=== PATIENT | female | born 1945 | race African-American/Black ===

== ENCOUNTER → 2017-04-01 | Outpatient (CLI) | payer MEDICARE, OTHER ==
[~2017-04-01] MED LIST: ACET-66 PO; ALBU8.5H IH; ALLO300 PO; Aspirin PO; BACIO TP; BUDE10.2 IH; CALC-1003 PO; CLOB60CR4 TP; CLOT15CR5 TP; CYAN50008 PO; FERR89TA PO; FURO40 PO; HC1C1.5 TP; HYDR-3965 PO; IPRAHFA IH; LORA10TA7 PO; LOSA50TA37 PO; MAGOX PO; MIRAUD PO; MORP10CA8 PO; MULT-1203 PO; OMEP20 PO; PREG50 PO; PREG75 PO; QUET25TA PO; SPIR25 PO; TRAVZOS OU; TRAZ-147 PO; VERA-6 PO; VITAD1000 PO; ZARO2.5 PO
== END | disposition home or self-care (01) ==
LOC: RADPV 12:49
PROVIDERS: ATTEND Orthopaedic Surgery
DX: M17.12 Unilateral primary osteoarthritis, left knee (principal)

== ENCOUNTER → 2017-05-29 | Outpatient (CLI) | payer MEDICARE, OTHER ==
[~2017-05-29] MED LIST changes: -ALBU8.5H IH; +ALBU8.5H8 IH; +ASPI-1182 PO; +BENZ-51 PO; +DEXT15SY3 PO; +HYDR-4069 PO; +MORP15 PO
== END | disposition home or self-care (01) ==
LOC: RADPV 10:11
PROVIDERS: ATTEND Orthopaedic Surgery
DX: I73.9 Peripheral vascular disease, unspecified (principal)
CPT/HCPCS: 93925

== ENCOUNTER 2017-06-13 12:43 | Emergency (ER) | payer MEDICARE, OTHER ==
[~2017-06-13] VITALS: Ht 172.7 cm; Wt 131.5 kg
[~2017-06-13 12:43] MED LIST changes: -ASPI-1182 PO; -BENZ-51 PO; -DEXT15SY3 PO; -HYDR-4069 PO; -MORP15 PO
[2017-06-13] MEDS ORDERED: DONNATAL/LIDOCAINE/MAALOX 55 ML BOTTLE PO ONE (15:00)
[2017-06-13 15:28] LABS: BASOPHILS % (AUTO) 0.3 % (0.0-2.0); EOSINOPHILS % (AUTO) 2.5 % (1.0-6.0); HEMATOCRIT 35.2 % (36-46); HEMOGLOBIN 11.7 g/dL (12.0-16.0); LYMPHOCYTES # (AUTO) 2.3 K/uL (1.0-4.8); LYMPHOCYTES % (AUTO) 38.6 % (22.0-44.0); MEAN CORPUSCULAR HEMOGLOBIN 30.4 pg (26.0-34.0); MEAN CORPUSCULAR HGB CONC 33.3 G/dL (31.0-37.0); MEAN CORPUSCULAR VOLUME 91 fL (80-100); MONOCYTES # (AUTO) 0.4 K/uL (0.1-1.0); MONOCYTES % (AUTO) 6.4 % (2.0-9.0); NEUTROPHILS # (AUTO) 3.1 K/uL (1.8-7.7); NEUTROPHILS % (AUTO) 52.2 % (40.0-70.0); PLATELET COUNT (AUTO) 277 K/uL (150-450); RED BLOOD CELL COUNT(AUTO) 3.86 MIL/uL (4.00-5.20); RED CELL DISTRIBUTION WIDTH 14.4 % (11.5-14.5)
[2017-06-13 15:32] LABS: CALCIUM, TOTAL 8.9 mg/dL (8.8-10.5); CREATININE 1.41 mg/dL (0.60-1.30); POTASSIUM 4.1 mmol/L (3.5-5.1)
[2017-06-13 15:34] LABS: INR 1.1 (0.9-1.1); PROTHROMBIN TIME 11.4 SEC (9.4-11.6)
[2017-06-13 15:39] LABS: ALBUMIN 3.1 g/dL (3.4-5.0); BILIRUBIN,TOTAL 0.3 mg/dL (0.1-1.0); TOTAL PROTEIN, SERUM 7.9 g/dL (6.4-8.2)
[2017-06-13] MEDS ORDERED: CloNIDine HCL 0.1 MG TABLET PO ONE (16:45)
[2017-06-13 16:47] VITALS: BP 160/65
== END 2017-06-13 17:23 | disposition home or self-care (01) ==
LOC: EMS 12:44
DX: R04.0 Epistaxis (principal); R10.13 Epigastric pain; J45.909 Unspecified asthma, uncomplicated; I11.0 Hypertensive heart disease with heart failure; I50.9 Heart failure, unspecified; J44.9 Chronic obstructive pulmonary disease, unspecified; Z95.1 Presence of aortocoronary bypass graft; Z88.6 Allergy status to analgesic agent; Z88.0 Allergy status to penicillin; Z88.8 Allergy status to other drugs, medicaments and biological substances; Z91.018 Allergy to other foods
CPT/HCPCS: 74022; 93005; 99285

== ENCOUNTER 2017-06-22 01:16 | Inpatient (IN) | payer MEDICARE, OTHER ==
[~2017-06-22] VITALS: Ht 160 cm; Wt 135.0 kg
[2017-06-22] MEDS ORDERED: NITROGLYCERIN 0.4 MG SUBLINGUAL TABLET #25 SL ONE (01:45)
[2017-06-22 01:57] LABS: BASOPHILS # (AUTO) 0.12 K/uL (0.00-0.20); BASOPHILS % (AUTO) 1.6 % (0.0-2.0); EOSINOPHILS # (AUTO) 0.25 K/uL (0.00-0.70); EOSINOPHILS % (AUTO) 3.35 % (1.0-6.0); HEMATOCRIT 34.9 % (36-46); HEMOGLOBIN 11.5 g/dL (12.0-16.0); LYMPHOCYTES # (AUTO) 3.3 K/uL (1.0-4.8); LYMPHOCYTES % (AUTO) 42.8 % (22.0-44.0); MEAN CORPUSCULAR HEMOGLOBIN 30.3 pg (26.0-34.0); MEAN CORPUSCULAR HGB CONC 32.9 G/dL (31.0-37.0); MEAN CORPUSCULAR VOLUME 92 fL (80-100); MONOCYTES # (AUTO) 0.6 K/uL (0.1-1.0); MONOCYTES % (AUTO) 7.4 % (2.0-9.0); NEUTROPHILS # (AUTO) 3.4 K/uL (1.8-7.7); NEUTROPHILS % (AUTO) 44.8 % (40.0-70.0); PLATELET COUNT (AUTO) 259 K/uL (150-450); RED BLOOD CELL COUNT(AUTO) 3.78 MIL/uL (4.00-5.20); WHITE BLOOD COUNT (AUTO) 7.6 K/uL (4.5-11.0)
[2017-06-22 02:05] LABS: INR 1.1 (0.9-1.1); PROTHROMBIN TIME 11.4 SEC (9.4-11.6)
[2017-06-22 02:17] LABS: ANION GAP 4 mmol/L (8-16); CALCIUM, TOTAL 8.6 mg/dL (8.8-10.5); CARBON DIOXIDE 32 mmol/L (22-29); CHLORIDE 98 mmol/L (98-107); CREATININE 1.44 mg/dL (0.60-1.30); GLOMERULAR FILTR. RATE CALC 44 mL/min (>60); POTASSIUM 3.6 mmol/L (3.5-5.1); SODIUM SERUM 134 mmol/L (136-145); UREA NITROGEN, BLOOD 15 mg/dL (7-18)
[2017-06-22 02:23] LABS: ALANINE AMINOTRANSFERASE 22 U/L (12-78); ALBUMIN 3.2 g/dL (3.4-5.0); ASPARTATE AMINOTRANSFERASE 17 U/L (15-37); B-TYPE NATRIURETIC PEPTIDE 100 pg/mL (0-100); BILIRUBIN,TOTAL 0.3 mg/dL (0.1-1.0); CREATINE KINASE, TOTAL 58 U/L (26-192); TOTAL PROTEIN, SERUM 7.3 g/dL (6.4-8.2)
[2017-06-22] MEDS ORDERED: NITROGLYCERIN 0.4 MG SUBLINGUAL TABLET #25 SL PRN (05:30)
[2017-06-22] MEDS ORDERED: NITROGLYCERIN 2% (1 GM=INCH) PACKET TP PRN (05:30)
[2017-06-22] MEDS ORDERED: ALBUTEROL SULFATE 2.5 MG/0.5 ML NEB SOLUTION NEB PRN (05:30)
[2017-06-22] MEDS ORDERED: ALBUTEROL SULFATE HFA 90 MCG/PUFF 8 GM INHALER IH SCH (06:00)
[2017-06-22 06:02] VITALS: BP 159/94
[2017-06-22 07:38] VITALS: BP 140/76
[2017-06-22] MEDS: IPRATROPIUM BROMIDE 0.5 MG/2.5 ML NEB SOLUTION NEB SCH ×3 (08:35→20:02)
[2017-06-22] MEDS: ALBUTEROL SULFATE 2.5 MG/0.5 ML NEB SOLUTION NEB SCH ×3 (08:35→20:02)
[2017-06-22] MEDS ORDERED: BUDESONIDE/FORMOTEROL FUMARATE 160-4.5 MCG/PUFF 6.9 GM INHALER IH SCH (09:00)
[2017-06-22] MEDS: ALLOPURINOL 300 MG TABLET PO SCH (09:00)
[2017-06-22] MEDS ORDERED: HYDROCODONE/ACETAMINOPHEN 5-325 MG TABLET PO SCH (09:00)
[2017-06-22] MEDS ORDERED: IPRATROPIUM BROMIDE HFA 17 MCG/PUFF 12.9 GM INHALER IH SCH (09:00)
[2017-06-22] MEDS: CHOLECALCIFEROL (VIT D3) 1,000 UNITS TABLET PO SCH (09:04)
[2017-06-22] MEDS: FUROSEMIDE 40 MG TABLET PO SCH ×2 (09:04→20:20)
[2017-06-22] MEDS: MAGNESIUM OXIDE 400 MG TABLET PO SCH ×2 (09:04→20:20)
[2017-06-22] MEDS: VERAPAMIL HCL 120 MG ER TABLET PO SCH (09:04)
[2017-06-22] MEDS: METOLAZONE 2.5 MG TABLET PO SCH (09:04)
[2017-06-22] MEDS: HYDROCODONE/ACETAMINOPHEN 5-325 MG TABLET PO PRN (09:39)
[2017-06-22] MEDS: ASPIRIN 81 MG EC TABLET PO SCH (09:39)
[2017-06-22 11:17] VITALS: BP 145/75
[2017-06-22] MEDS: QUEtiapine FUMARATE 25 MG TABLET PO SCH ×2 (11:57→22:02)
[2017-06-22] MEDS: LOSARTAN POTASSIUM 50 MG TABLET PO SCH (11:57)
[2017-06-22] MEDS: SPIRONOLACTONE 25 MG TABLET PO SCH (11:57)
[2017-06-22] MEDS: PRAVASTATIN SODIUM 20 MG TABLET PO SCH (11:57)
[2017-06-22 15:40] VITALS: BP 116/64
[2017-06-22 19:47] VITALS: BP 138/72
[2017-06-22] MEDS: MORPHINE SULFATE 2 MG/ML SYRINGE IVP PRN (20:20)
[2017-06-22] MEDS: POLYETHYLENE GLYCOL 3350 17 GM PACKET PO SCH (20:20)
[2017-06-22] MEDS: TraZODone HCL 100 MG TABLET PO SCH (22:01)
[2017-06-22] MEDS: TRAVOPROST-Z 0.004% 2.5 ML OPHTHALMIC SOLUTION OU SCH (22:02)
[2017-06-22 23:39] VITALS: BP 121/65
[2017-06-23] VITALS (8 sets, daily range): BP systolic 119–166; BP diastolic 54–91
[2017-06-23] MEDS: ALBUTEROL SULFATE 2.5 MG/0.5 ML NEB SOLUTION NEB SCH ×4 (02:30→20:02)
[2017-06-23] MEDS: IPRATROPIUM BROMIDE 0.5 MG/2.5 ML NEB SOLUTION NEB SCH ×4 (02:30→20:02)
[2017-06-23 06:08] LABS: BASOPHILS % (AUTO) 0.6 % (0.0-2.0); EOSINOPHILS % (AUTO) 3.8 % (1.0-6.0); HEMATOCRIT 33.7 % (36-46); HEMOGLOBIN 11.4 g/dL (12.0-16.0); LYMPHOCYTES # (AUTO) 1.9 K/uL (1.0-4.8); LYMPHOCYTES % (AUTO) 31.6 % (22.0-44.0); MEAN CORPUSCULAR HEMOGLOBIN 30.7 pg (26.0-34.0); MEAN CORPUSCULAR HGB CONC 33.7 G/dL (31.0-37.0); MEAN CORPUSCULAR VOLUME 91 fL (80-100); MONOCYTES # (AUTO) 0.6 K/uL (0.1-1.0); MONOCYTES % (AUTO) 9.6 % (2.0-9.0); NEUTROPHILS # (AUTO) 3.3 K/uL (1.8-7.7); NEUTROPHILS % (AUTO) 54.4 % (40.0-70.0); PLATELET COUNT (AUTO) 270 K/uL (150-450); RED CELL DISTRIBUTION WIDTH 13.8 % (11.5-14.5)
[2017-06-23 06:23] LABS: ALBUMIN 2.9 g/dL (3.4-5.0); BILIRUBIN,TOTAL 0.5 mg/dL (0.1-1.0); CALCIUM, TOTAL 8.8 mg/dL (8.8-10.5); CREATININE 1.37 mg/dL (0.60-1.30); MAGNESIUM 1.6 mg/dL (1.80-2.40); POTASSIUM 3.9 mmol/L (3.5-5.1)
[2017-06-23] MEDS: MAGNESIUM OXIDE 400 MG TABLET PO SCH ×2 (08:51→20:21)
[2017-06-23] MEDS: ALLOPURINOL 300 MG TABLET PO SCH (09:00)
[2017-06-23] MEDS: SPIRONOLACTONE 25 MG TABLET PO SCH (09:00)
[2017-06-23 10:30] LABS: APPEARANCE,URINE CLEAR (CLEAR); GLUCOSE, URINE (UA) NEGATIVE (NEGATIVE); KETONES,URINE NEGATIVE (NEGATIVE); LEUKOCYTE ESTERASE ,URINE NEGATIVE (NEGATIVE); OCCULT BLOOD,URINE NEGATIVE (NEGATIVE); PH,URINE 7.5 (5.0-8.0); PROTEIN,URINE NEGATIVE (NEGATIVE)
[2017-06-23 10:32] LABS: ADD UA MICROSCOPIC NO
[2017-06-23] MEDS ORDERED: REGADENOSON 0.4 MG/5 ML PF SYRINGE IVP ONE ×2 (12:11→17:14)
[2017-06-23] MEDS ORDERED: AMINOPHYLLINE 25 MG/ML 10 ML VIAL IVP ONE ×3 (12:16→17:14)
[2017-06-23] MEDS ORDERED: SESTAMIBI TC99M/UD ISOTOPE 1 EA INJ INJ ONE (12:20)
[2017-06-23] MEDS: FUROSEMIDE 40 MG TABLET PO SCH ×2 (13:30→20:21)
[2017-06-23] MEDS: LOSARTAN POTASSIUM 50 MG TABLET PO SCH (13:30)
[2017-06-23] MEDS: PRAVASTATIN SODIUM 20 MG TABLET PO SCH (13:30)
[2017-06-23] MEDS: QUEtiapine FUMARATE 25 MG TABLET PO SCH ×2 (13:30→20:21)
[2017-06-23] MEDS: ASPIRIN 81 MG EC TABLET PO SCH (13:31)
[2017-06-23] MEDS: CHOLECALCIFEROL (VIT D3) 1,000 UNITS TABLET PO SCH (13:31)
[2017-06-23] MEDS: VERAPAMIL HCL 120 MG ER TABLET PO SCH (13:31)
[2017-06-23] MEDS ORDERED: MORP15 PO (14:20)
[2017-06-23] MEDS ORDERED: ASPI-1182 PO (14:25)
[2017-06-23] MEDS ORDERED: HYDR-4069 PO (14:25)
[2017-06-23] MEDS ORDERED: TRAZ-147 PO (14:26)
[2017-06-23] MEDS ORDERED: QUET25TA PO (14:27)
[2017-06-23] MEDS ORDERED: VERA-6 PO (14:27)
[2017-06-23] MEDS: HYDROCODONE/ACETAMINOPHEN 5-325 MG TABLET PO PRN ×2 (15:54→23:53)
[2017-06-23] MEDS ORDERED: GuaiFENesin/D-METHORPHAN [SUGAR-FREE] 200-20MG/10 ML SYRUP UDCUP PO PRN (19:15)
[2017-06-23] MEDS: OMEPRAZOLE 20 MG CAPSULE PO SCH (20:21)
[2017-06-23] MEDS: MORPHINE SULFATE 2 MG/ML SYRINGE IVP PRN (20:37)
[2017-06-23] MEDS ORDERED: PREGABALIN 50 MG CAPSULE PO SCH (21:00)
[2017-06-23] MEDS: POLYETHYLENE GLYCOL 3350 17 GM PACKET PO SCH (21:00)
[2017-06-23] MEDS ORDERED: TraZODone HCL 100 MG TABLET PO SCH (21:00)
[2017-06-23] MEDS: TRAVOPROST-Z 0.004% 2.5 ML OPHTHALMIC SOLUTION OU SCH (21:56)
[2017-06-23] MEDS: TraZODone HCL 100 MG TABLET PO SCH (22:01)
[2017-06-23] MEDS: BENZONATATE 100 MG CAPSULE PO SCH (23:53)
[2017-06-24] MEDS: ALBUTEROL SULFATE 2.5 MG/0.5 ML NEB SOLUTION NEB SCH ×3 (02:00→14:00)
[2017-06-24] MEDS: IPRATROPIUM BROMIDE 0.5 MG/2.5 ML NEB SOLUTION NEB SCH ×3 (02:00→14:00)
[2017-06-24 04:19] VITALS: BP 113/62
[2017-06-24 07:21] LABS: BASOPHILS % (AUTO) 0.3 % (0.0-2.0); EOSINOPHILS % (AUTO) 3.2 % (1.0-6.0); HEMATOCRIT 33.9 % (36-46); HEMOGLOBIN 11.6 g/dL (12.0-16.0); LYMPHOCYTES # (AUTO) 2.4 K/uL (1.0-4.8); MEAN CORPUSCULAR HGB CONC 34.3 G/dL (31.0-37.0); MEAN CORPUSCULAR VOLUME 90 fL (80-100); MONOCYTES # (AUTO) 0.7 K/uL (0.1-1.0); NEUTROPHILS # (AUTO) 4.8 K/uL (1.8-7.7); NEUTROPHILS % (AUTO) 59.5 % (40.0-70.0); PLATELET COUNT (AUTO) 278 K/uL (150-450); RED BLOOD CELL COUNT(AUTO) 3.75 MIL/uL (4.00-5.20); WHITE BLOOD COUNT (AUTO) 8.1 K/uL (4.5-11.0)
[2017-06-24 07:39] LABS: ALBUMIN 2.9 g/dL (3.4-5.0); BILIRUBIN,TOTAL 0.5 mg/dL (0.1-1.0); CALCIUM, TOTAL 8.6 mg/dL (8.8-10.5); CREATININE 1.32 mg/dL (0.60-1.30); MAGNESIUM 1.4 mg/dL (1.80-2.40); POTASSIUM 3.2 mmol/L (3.5-5.1); TOTAL PROTEIN, SERUM 7.2 g/dL (6.4-8.2)
[2017-06-24 07:42] VITALS: BP 125/62
[2017-06-24] MEDS ORDERED: SESTAMIBI TC99M/UD ISOTOPE 1 EA INJ INJ ONE (08:00)
[2017-06-24] MEDS ORDERED: POTASSIUM CHLORIDE 20 MEQ ER TABLET PO ONE (08:15)
[2017-06-24] MEDS: VERAPAMIL HCL 120 MG ER TABLET PO SCH (08:44)
[2017-06-24] MEDS: FUROSEMIDE 40 MG TABLET PO SCH (08:44)
[2017-06-24] MEDS: BENZONATATE 100 MG CAPSULE PO SCH ×2 (08:44→17:11)
[2017-06-24] MEDS: SPIRONOLACTONE 25 MG TABLET PO SCH (08:44)
[2017-06-24] MEDS: CHOLECALCIFEROL (VIT D3) 1,000 UNITS TABLET PO SCH (08:45)
[2017-06-24] MEDS: PRAVASTATIN SODIUM 20 MG TABLET PO SCH (08:45)
[2017-06-24] MEDS: OMEPRAZOLE 20 MG CAPSULE PO SCH (08:45)
[2017-06-24] MEDS: HYDROCODONE/ACETAMINOPHEN 5-325 MG TABLET PO PRN (08:45)
[2017-06-24] MEDS: ALLOPURINOL 300 MG TABLET PO SCH (08:45)
[2017-06-24] MEDS: METOLAZONE 2.5 MG TABLET PO SCH (08:45)
[2017-06-24] MEDS: ASPIRIN 81 MG EC TABLET PO SCH (08:45)
[2017-06-24] MEDS: LOSARTAN POTASSIUM 50 MG TABLET PO SCH (08:45)
[2017-06-24] MEDS: MAGNESIUM OXIDE 400 MG TABLET PO SCH (08:45)
[2017-06-24] MEDS: QUEtiapine FUMARATE 25 MG TABLET PO SCH (09:14)
[2017-06-24 11:33] VITALS: BP 157/75
[2017-06-24 15:58] VITALS: BP 136/64
[2017-06-24] MEDS ORDERED: DEXT15SY3 PO (18:17)
[2017-06-24] MEDS ORDERED: BENZ-51 PO (18:18)
[2017-06-25] MEDS ORDERED: LORATADINE 10 MG TABLET PO SCH (09:00)
== END 2017-06-24 18:30 | disposition home or self-care (01) | DRG 311 ==
LOC: EMS 01:17 → 5S 04:33 → 5N 06-23 10:00
PROVIDERS: ADMIT Internal Medicine; ATTEND Internal Medicine
DX: I20.0 Unstable angina (principal); I11.0 Hypertensive heart disease with heart failure; D64.9 Anemia, unspecified; I50.9 Heart failure, unspecified; Z68.43 Body mass index [BMI] 50.0-59.9, adult; E66.9 Obesity, unspecified; E87.6 Hypokalemia; Z96.651 Presence of right artificial knee joint; F32.9 Major depressive disorder, single episode, unspecified; J44.9 Chronic obstructive pulmonary disease, unspecified; M10.9 Gout, unspecified; K21.9 Gastro-esophageal reflux disease without esophagitis; M19.90 Unspecified osteoarthritis, unspecified site; G89.4 Chronic pain syndrome; R94.31 Abnormal electrocardiogram [ECG] [EKG]; Z53.29 Procedure and treatment not carried out because of patient's decision for other reasons; Z98.84 Bariatric surgery status; Z88.0 Allergy status to penicillin; Z91.041 Radiographic dye allergy status; Z88.8 Allergy status to other drugs, medicaments and biological substances; Z91.048 Other nonmedicinal substance allergy status; Z90.710 Acquired absence of both cervix and uterus; Z90.49 Acquired absence of other specified parts of digestive tract; Z87.891 Personal history of nicotine dependence; Z79.82 Long term (current) use of aspirin
CPT/HCPCS: 78452; 83735; 93005; 93017; 93306; 94640; 99285; A9500; J0280; J2270; J2785; J3535

== ENCOUNTER 2017-12-09 14:48 | Emergency (ER) | payer MEDICARE, OTHER ==
[~2017-12-09] VITALS: Ht 172.7 cm; Wt 136.4 kg
[~2017-12-09 14:48] MED LIST changes: -ACET-66 PO; +ASPI-1182 PO; -Aspirin PO; -BACIO TP; +BENZ-51 PO; -CLOB60CR4 TP; -CLOT15CR5 TP; +DEXT15SY3 PO; -HC1C1.5 TP; -HYDR-3965 PO; +HYDR-4069 PO; -MORP10CA8 PO; +MORP15 PO; -PREG75 PO
[2017-12-09 15:01] VITALS: BP 164/82
[2017-12-09] MEDS ORDERED: ATOR40TA28 PO (15:25)
[2017-12-09] MEDS ORDERED: LOSA50TA37 PO (15:25)
[2017-12-09] MEDS ORDERED: METO25XL PO (15:25)
[2017-12-09] MEDS ORDERED: SODIUM CHLORIDE 0.9% 1,000 ML IV ONE (15:30)
[2017-12-09] MEDS ORDERED: ONDANSETRON HCL 4 MG/2 ML VIAL IVP ONE (15:30)
[2017-12-09 15:57] LABS: GLUCOSE,POINT OF CARE 88 MG/DL (70-110)
[2017-12-09 16:31] LABS: BASOPHILS % (AUTO) 0.8 % (0.0-2.0); EOSINOPHILS % (AUTO) 1.5 % (1.0-6.0); HEMATOCRIT 36.1 % (36-46); HEMOGLOBIN 12.1 g/dL (12.0-16.0); LYMPHOCYTES % (AUTO) 24.9 % (22.0-44.0); MEAN CORPUSCULAR HGB CONC 33.7 G/dL (31.0-37.0); MEAN CORPUSCULAR VOLUME 89 fL (80-100); MONOCYTES # (AUTO) 0.5 K/uL (0.1-1.0); MONOCYTES % (AUTO) 6.2 % (2.0-9.0); NEUTROPHILS # (AUTO) 5.2 K/uL (1.8-7.7); NEUTROPHILS % (AUTO) 66.6 % (40.0-70.0); PLATELET COUNT (AUTO) 298 K/uL (150-450); RED BLOOD CELL COUNT(AUTO) 4.04 MIL/uL (4.00-5.20); RED CELL DISTRIBUTION WIDTH 13.9 % (11.5-14.5)
[2017-12-09 16:40] LABS: CREATININE 1.63 mg/dL (0.60-1.30); POTASSIUM 3.8 mmol/L (3.5-5.1)
[2017-12-09 16:46] LABS: BILIRUBIN,TOTAL 0.3 mg/dL (0.1-1.0)
== END 2017-12-09 17:37 | disposition home or self-care (01) ==
LOC: EMS 14:49
DX: I13.0 Hypertensive heart and chronic kidney disease with heart failure and stage 1 through stage 4 chronic kidney disease, or unspecified chronic kidney disease (principal); I44.0 Atrioventricular block, first degree; I50.9 Heart failure, unspecified; R42 Dizziness and giddiness; J44.9 Chronic obstructive pulmonary disease, unspecified; N18.9 Chronic kidney disease, unspecified; Z79.82 Long term (current) use of aspirin; Z79.899 Other long term (current) drug therapy; Z88.0 Allergy status to penicillin; Z88.6 Allergy status to analgesic agent; Z90.49 Acquired absence of other specified parts of digestive tract; Z90.710 Acquired absence of both cervix and uterus; Z96.651 Presence of right artificial knee joint; Z98.84 Bariatric surgery status
CPT/HCPCS: 70450; 71045; 80053; 82948; 82962; 85025; 93005; 96361; 96374; 99285; J2405

== ENCOUNTER 2018-04-03 15:08 | Inpatient (IN) | payer MEDICARE, OTHER ==
[~2018-04-03] VITALS: Ht 170.2 cm; Wt 141.5 kg
[~2018-04-03 15:08] MED LIST changes: +ATOR40TA28 PO; +METO25XL PO; -TRAZ-147 PO; +TRAZ-220 PO
[2018-04-03] MEDS ORDERED: ONDANSETRON HCL 4 MG/2 ML VIAL IVP ONE ×2 (15:30→20:00)
[2018-04-03 16:08] LABS: EOSINOPHILS % (AUTO) 0.4 % (1.0-6.0); HEMATOCRIT 32.3 % (36-46); HEMOGLOBIN 10.7 g/dL (12.0-16.0); LYMPHOCYTES # (AUTO) 2.1 K/uL (1.0-4.8); LYMPHOCYTES % (AUTO) 24.8 % (22.0-44.0); MEAN CORPUSCULAR VOLUME 88 fL (80-100); MONOCYTES # (AUTO) 0.6 K/uL (0.1-1.0); MONOCYTES % (AUTO) 7.1 % (2.0-9.0); NEUTROPHILS # (AUTO) 5.5 K/uL (1.8-7.7); NEUTROPHILS % (AUTO) 66.7 % (40.0-70.0); PLATELET COUNT (AUTO) 316 K/uL (150-450); RED BLOOD CELL COUNT(AUTO) 3.68 MIL/uL (4.00-5.20); RED CELL DISTRIBUTION WIDTH 15.5 % (11.5-14.5)
[2018-04-03 16:17] LABS: CREATININE 1.73 mg/dL (0.60-1.30); POTASSIUM 3.4 mmol/L (3.5-5.1)
[2018-04-03 16:20] LABS: INR 1.1 (0.9-1.1); PROTHROMBIN TIME 11.9 SEC (9.4-11.6)
[2018-04-03 16:23] LABS: ALBUMIN 2.9 g/dL (3.4-5.0); BILIRUBIN,TOTAL 0.5 mg/dL (0.1-1.0); TOTAL PROTEIN, SERUM 7.9 g/dL (6.4-8.2)
[2018-04-03] MEDS ORDERED: MORPHINE SULFATE 4 MG/ML SYRINGE IVP ONE (16:30)
[2018-04-03 17:27] LABS: APPEARANCE,URINE CLOUDY (CLEAR); BILIRUBIN,URINE NEGATIVE (NEGATIVE); GLUCOSE, URINE (UA) NEGATIVE (NEGATIVE); KETONES,URINE NEGATIVE (NEGATIVE); LEUKOCYTE ESTERASE ,URINE TRACE (NEGATIVE); NITRATE,URINE NEGATIVE (NEGATIVE); OCCULT BLOOD,URINE NEGATIVE (NEGATIVE); PH,URINE 5.5 (5.0-8.0); PROTEIN,URINE NEGATIVE (NEGATIVE); UROBILINOGEN,URINE 0.2 mg/dL (<=1.0)
[2018-04-03 17:31] LABS: AMPHET/METH SCREEN,URINE NEGATIVE (NEGATIVE); BARBITURATE SCREEN, URINE NEGATIVE (NEGATIVE); BENZODIAZEPINES SCREEN,URINE NEGATIVE (NEGATIVE); CANNABINOID SCREEN,URINE NEGATIVE (NEGATIVE); COCAINE SCREEN,URINE NEGATIVE (NEGATIVE); METHADONE SCREEN, URINE NEGATIVE (NEGATIVE); OPIATE SCREEN,URINE POSITIVE (NEGATIVE); PHENCYCLIDINE SCREEN,URINE NEGATIVE (NEGATIVE)
[2018-04-03 17:38] LABS: BACTERIA,URINE Rare /HPF (None Seen); RBC,URINE None Seen /HPF (0-2); SQUAMOUS EPITHELIAL CELL,UR Moderate /LPF (None Seen)
[2018-04-03] MEDS ORDERED: ACETAMINOPHEN 325 MG TABLET PO PRN (20:00)
[2018-04-03] MEDS ORDERED: SODIUM CHLORIDE 0.9% 1,000 ML IV ONE ×2 (20:00→21:45)
[2018-04-03] MEDS ORDERED: 0.9% SODIUM CHLORIDE 10 ML SYRINGE IVP PRN (20:00)
[2018-04-03] MEDS ORDERED: ONDANSETRON HCL 4 MG/2 ML VIAL IVP PRN (20:00)
[2018-04-03 21:31] VITALS: BP 114/73
[2018-04-03] MEDS ORDERED: BISACODYL 10 MG RECTAL RECTAL SUPPOSITORY PR PRN (21:45)
[2018-04-03] MEDS ORDERED: MAGNESIUM HYDROXIDE SUSPENSION 30 ML UDCUP PO PRN (21:45)
[2018-04-03] MEDS: CIPROFLOXACIN 200 MG/D5% WATER 100 ML IV SCH (22:29)
[2018-04-03] MEDS: ZOLPIDEM TARTRATE 5 MG TABLET PO PRN (22:37)
[2018-04-03] MEDS: MORPHINE SULFATE 2 MG/ML SYRINGE IVP PRN (22:37)
[2018-04-03 23:20] VITALS: BP 114/59
[2018-04-03] MEDS: HEPARIN SODIUM,PORCINE 5,000 UNITS/ML VIAL SQ SCH (23:56)
[2018-04-03] MEDS: MetroNIDAZOLE 500 MG/NACL 100 ML IV SCH (23:56)
[2018-04-04] VITALS (7 sets, daily range): BP systolic 105–136; BP diastolic 50–69
[2018-04-04] MEDS: MORPHINE SULFATE 2 MG/ML SYRINGE IVP PRN (05:28)
[2018-04-04 06:14] LABS: BASOPHILS % (AUTO) 0.9 % (0.0-2.0); EOSINOPHILS % (AUTO) 1.5 % (1.0-6.0); HEMATOCRIT 32.8 % (36-46); HEMOGLOBIN 10.8 g/dL (12.0-16.0); LYMPHOCYTES # (AUTO) 1.9 K/uL (1.0-4.8); LYMPHOCYTES % (AUTO) 28.1 % (22.0-44.0); MEAN CORPUSCULAR HEMOGLOBIN 29.1 pg (26.0-34.0); MEAN CORPUSCULAR VOLUME 88 fL (80-100); MONOCYTES # (AUTO) 0.5 K/uL (0.1-1.0); MONOCYTES % (AUTO) 6.8 % (2.0-9.0); NEUTROPHILS # (AUTO) 4.2 K/uL (1.8-7.7); NEUTROPHILS % (AUTO) 62.7 % (40.0-70.0); PLATELET COUNT (AUTO) 311 K/uL (150-450); RED CELL DISTRIBUTION WIDTH 15.6 % (11.5-14.5)
[2018-04-04 06:34] LABS: ALBUMIN 2.6 g/dL (3.4-5.0); BILIRUBIN,TOTAL 0.4 mg/dL (0.1-1.0); CALCIUM, TOTAL 8.8 mg/dL (8.8-10.5); CREATININE 1.4 mg/dL (0.60-1.30); POTASSIUM 3.3 mmol/L (3.5-5.1); TOTAL PROTEIN, SERUM 7.4 g/dL (6.4-8.2)
[2018-04-04] MEDS: HEPARIN SODIUM,PORCINE 5,000 UNITS/ML VIAL SQ SCH ×3 (08:54→23:25)
[2018-04-04] MEDS: ACETAMINOPHEN 325 MG TABLET PO PRN (08:54)
[2018-04-04] MEDS: ASPIRIN 81 MG EC TABLET PO SCH (08:54)
[2018-04-04] MEDS: PANTOPRAZOLE SODIUM 40 MG DR TABLET PO SCH (08:54)
[2018-04-04] MEDS: MetroNIDAZOLE 500 MG/NACL 100 ML IV SCH ×3 (08:54→23:25)
[2018-04-04] MEDS: DOCUSATE SODIUM 100 MG CAPSULE PO SCH ×2 (08:54→20:22)
[2018-04-04] MEDS: CHOLECALCIFEROL (VIT D3) 1,000 UNITS TABLET PO SCH (08:54)
[2018-04-04] MEDS: ALLOPURINOL 300 MG TABLET PO SCH (08:55)
[2018-04-04] MEDS: MAG HYDROX/AL HYDROX/SIMETH 30 ML SUSP UDCUP PO SCH ×2 (08:55→20:22)
[2018-04-04] MEDS: METOPROLOL SUCCINATE 25 MG ER TABLET PO SCH (08:55)
[2018-04-04] MEDS: PREGABALIN 50 MG CAPSULE PO SCH ×2 (08:55→20:21)
[2018-04-04] MEDS: SPIRONOLACTONE 25 MG TABLET PO SCH (08:55)
[2018-04-04] MEDS: BUDESONIDE/FORMOTEROL FUMARATE 160-4.5 MCG/PUFF 6.9 GM INHALER IH SCH ×2 (08:57→20:21)
[2018-04-04] MEDS: CIPROFLOXACIN 200 MG/D5% WATER 100 ML IV SCH ×2 (10:56→20:23)
[2018-04-04] MEDS: ONDANSETRON HCL 4 MG/2 ML VIAL IVP PRN ×2 (11:43→20:22)
[2018-04-04] MEDS ORDERED: POTASSIUM CHLORIDE 20 MEQ ER TABLET PO ONE (14:15)
[2018-04-04] MEDS: HYDROCODONE/ACETAMINOPHEN 5-325 MG TABLET PO PRN ×2 (16:18→20:22)
[2018-04-04] MEDS: ATORVASTATIN CALCIUM 40 MG TABLET PO SCH (20:22)
[2018-04-05 04:15] VITALS: BP 125/60
[2018-04-05] MEDS: MORPHINE SULFATE 2 MG/ML SYRINGE IVP PRN ×2 (05:48→14:51)
[2018-04-05 07:45] VITALS: BP 114/57
[2018-04-05 08:16] LABS: BASOPHILS % (AUTO) 1.2 % (0.0-2.0); EOSINOPHILS % (AUTO) 3.3 % (1.0-6.0); HEMATOCRIT 30.6 % (36-46); HEMOGLOBIN 10.1 g/dL (12.0-16.0); LYMPHOCYTES # (AUTO) 2.1 K/uL (1.0-4.8); LYMPHOCYTES % (AUTO) 34.8 % (22.0-44.0); MEAN CORPUSCULAR HEMOGLOBIN 28.9 pg (26.0-34.0); MEAN CORPUSCULAR VOLUME 88 fL (80-100); MONOCYTES # (AUTO) 0.5 K/uL (0.1-1.0); MONOCYTES % (AUTO) 7.9 % (2.0-9.0); NEUTROPHILS # (AUTO) 3.2 K/uL (1.8-7.7); NEUTROPHILS % (AUTO) 52.8 % (40.0-70.0); PLATELET COUNT (AUTO) 289 K/uL (150-450); RED BLOOD CELL COUNT(AUTO) 3.49 MIL/uL (4.00-5.20); RED CELL DISTRIBUTION WIDTH 15.4 % (11.5-14.5)
[2018-04-05 08:26] LABS: CALCIUM, TOTAL 8.7 mg/dL (8.8-10.5); CREATININE 1.31 mg/dL (0.60-1.30); MAGNESIUM 1.9 mg/dL (1.80-2.40); POTASSIUM 3.6 mmol/L (3.5-5.1)
[2018-04-05] MEDS: MetroNIDAZOLE 500 MG/NACL 100 ML IV SCH ×3 (08:38→23:48)
[2018-04-05] MEDS: METOLAZONE 2.5 MG TABLET PO SCH (11:09)
[2018-04-05] MEDS: PANTOPRAZOLE SODIUM 40 MG DR TABLET PO SCH (11:09)
[2018-04-05] MEDS: MAG HYDROX/AL HYDROX/SIMETH 30 ML SUSP UDCUP PO SCH ×2 (11:09→22:03)
[2018-04-05] MEDS: ALLOPURINOL 300 MG TABLET PO SCH (11:09)
[2018-04-05] MEDS: PREGABALIN 50 MG CAPSULE PO SCH ×2 (11:10→19:52)
[2018-04-05] MEDS: DOCUSATE SODIUM 100 MG CAPSULE PO SCH ×3 (11:10→19:58)
[2018-04-05] MEDS: LORATADINE 10 MG TABLET PO SCH (11:10)
[2018-04-05] MEDS: SPIRONOLACTONE 25 MG TABLET PO SCH (11:11)
[2018-04-05] MEDS: BUDESONIDE/FORMOTEROL FUMARATE 160-4.5 MCG/PUFF 6.9 GM INHALER IH SCH ×2 (11:11→19:51)
[2018-04-05] MEDS: HEPARIN SODIUM,PORCINE 5,000 UNITS/ML VIAL SQ SCH ×3 (11:11→23:48)
[2018-04-05] MEDS: METOPROLOL SUCCINATE 25 MG ER TABLET PO SCH (11:11)
[2018-04-05] MEDS: CIPROFLOXACIN 200 MG/D5% WATER 100 ML IV SCH ×2 (11:12→22:03)
[2018-04-05] MEDS: ASPIRIN 81 MG EC TABLET PO SCH (11:13)
[2018-04-05] MEDS: CHOLECALCIFEROL (VIT D3) 1,000 UNITS TABLET PO SCH (11:14)
[2018-04-05] MEDS: BRIMONIDINE TARTRATE 0.15% 5 ML OPHTHALMIC SOLUTION OU SCH ×2 (14:51→19:52)
[2018-04-05 15:34] VITALS: BP 133/62
[2018-04-05] MEDS: HYDROCODONE/ACETAMINOPHEN 5-325 MG TABLET PO PRN ×2 (18:16→22:09)
[2018-04-05] MEDS: TIOTROPIUM BROMIDE 18 MCG/INH HANDIHALER [5] IH SCH (19:51)
[2018-04-05] MEDS: ATORVASTATIN CALCIUM 40 MG TABLET PO SCH (19:52)
[2018-04-05] MEDS: BIMATOPROST 0.01% 2.5 ML OPHTHALMIC SOLUTION OU SCH (19:52)
[2018-04-05 20:06] VITALS: BP 115/62
[2018-04-05] MEDS: ZOLPIDEM TARTRATE 5 MG TABLET PO PRN (22:03)
[2018-04-05 23:15] VITALS: BP 121/64
[2018-04-06 03:15] VITALS: BP 119/66
[2018-04-06 06:54] LABS: BASOPHILS % (AUTO) 0.5 % (0.0-2.0); EOSINOPHILS % (AUTO) 4.2 % (1.0-6.0); HEMATOCRIT 31.9 % (36-46); HEMOGLOBIN 10.3 g/dL (12.0-16.0); LYMPHOCYTES # (AUTO) 2.4 K/uL (1.0-4.8); LYMPHOCYTES % (AUTO) 37.3 % (22.0-44.0); MEAN CORPUSCULAR HEMOGLOBIN 29.1 pg (26.0-34.0); MEAN CORPUSCULAR HGB CONC 32.3 G/dL (31.0-37.0); MEAN CORPUSCULAR VOLUME 90 fL (80-100); MONOCYTES # (AUTO) 0.5 K/uL (0.1-1.0); MONOCYTES % (AUTO) 8.3 % (2.0-9.0); NEUTROPHILS # (AUTO) 3.2 K/uL (1.8-7.7); NEUTROPHILS % (AUTO) 49.7 % (40.0-70.0); PLATELET COUNT (AUTO) 289 K/uL (150-450); RED BLOOD CELL COUNT(AUTO) 3.54 MIL/uL (4.00-5.20); RED CELL DISTRIBUTION WIDTH 15.4 % (11.5-14.5)
[2018-04-06 07:08] LABS: CALCIUM, TOTAL 8.8 mg/dL (8.8-10.5); CREATININE 1.24 mg/dL (0.60-1.30); MAGNESIUM 1.7 mg/dL (1.80-2.40); POTASSIUM 3.5 mmol/L (3.5-5.1)
[2018-04-06 07:09] VITALS: BP 119/75
[2018-04-06] MEDS: MetroNIDAZOLE 500 MG/NACL 100 ML IV SCH (08:21)
[2018-04-06] MEDS: TIOTROPIUM BROMIDE 18 MCG/INH HANDIHALER [5] IH SCH (08:21)
[2018-04-06] MEDS: CHOLECALCIFEROL (VIT D3) 1,000 UNITS TABLET PO SCH (08:22)
[2018-04-06] MEDS: ALLOPURINOL 300 MG TABLET PO SCH (08:22)
[2018-04-06] MEDS: MAG HYDROX/AL HYDROX/SIMETH 30 ML SUSP UDCUP PO SCH ×2 (08:22→20:13)
[2018-04-06] MEDS: METOPROLOL SUCCINATE 25 MG ER TABLET PO SCH (08:22)
[2018-04-06] MEDS: PREGABALIN 50 MG CAPSULE PO SCH ×2 (08:22→20:14)
[2018-04-06] MEDS: HEPARIN SODIUM,PORCINE 5,000 UNITS/ML VIAL SQ SCH ×3 (08:23→23:06)
[2018-04-06] MEDS: SPIRONOLACTONE 25 MG TABLET PO SCH (08:23)
[2018-04-06] MEDS: DOCUSATE SODIUM 100 MG CAPSULE PO SCH ×3 (08:23→20:18)
[2018-04-06] MEDS: ASPIRIN 81 MG EC TABLET PO SCH (08:23)
[2018-04-06] MEDS: PANTOPRAZOLE SODIUM 40 MG DR TABLET PO SCH (08:24)
[2018-04-06] MEDS: BRIMONIDINE TARTRATE 0.15% 5 ML OPHTHALMIC SOLUTION OU SCH ×2 (08:24→20:13)
[2018-04-06] MEDS: BUDESONIDE/FORMOTEROL FUMARATE 160-4.5 MCG/PUFF 6.9 GM INHALER IH SCH ×2 (08:54→20:14)
[2018-04-06] MEDS ORDERED: TIOTROPIUM BROMIDE 18 MCG/INH HANDIHALER [5] IH SCH (09:00)
[2018-04-06] MEDS: CIPROFLOXACIN 200 MG/D5% WATER 100 ML IV SCH (09:46)
[2018-04-06] MEDS ORDERED: ATOR20TA86 PO (11:45)
[2018-04-06] MEDS ORDERED: ALLO100T PO (11:45)
[2018-04-06] MEDS ORDERED: HEPARIN SODIUM,PORCINE 5,000 UNITS/ML VIAL SQ SCH (11:45)
[2018-04-06] MEDS ORDERED: MAGNESIUM OXIDE 400 MG TABLET PO ONE ×2 (11:45)
[2018-04-06 12:27] VITALS: BP 117/62
[2018-04-06] MEDS ORDERED: GADOBUTROL 1 MMOL/ML 10 ML VIAL IVP ONE (13:17)
[2018-04-06] MEDS ORDERED: LORazepam 2 MG/ML VIAL IVP ONE (15:15)
[2018-04-06] MEDS: ONDANSETRON HCL 4 MG/2 ML VIAL IVP PRN (16:57)
[2018-04-06] MEDS: BIMATOPROST 0.01% 2.5 ML OPHTHALMIC SOLUTION OU SCH (20:13)
[2018-04-06] MEDS: ATORVASTATIN CALCIUM 40 MG TABLET PO SCH (20:14)
[2018-04-06 20:29] VITALS: BP 107/58
[2018-04-06] MEDS: ACETAMINOPHEN 325 MG TABLET PO PRN (20:56)
[2018-04-06] MEDS: ZOLPIDEM TARTRATE 5 MG TABLET PO PRN (22:31)
[2018-04-06 23:55] VITALS: BP 128/63
[2018-04-07] MEDS: MORPHINE SULFATE 2 MG/ML SYRINGE IVP PRN (00:11)
[2018-04-07 04:28] VITALS: BP 105/73
[2018-04-07 07:40] VITALS: BP 142/66
[2018-04-07] MEDS: ASPIRIN 81 MG EC TABLET PO SCH (08:06)
[2018-04-07] MEDS: METOLAZONE 2.5 MG TABLET PO SCH (08:06)
[2018-04-07] MEDS: ALLOPURINOL 300 MG TABLET PO SCH (08:06)
[2018-04-07] MEDS: METOPROLOL SUCCINATE 25 MG ER TABLET PO SCH (08:07)
[2018-04-07] MEDS: LORATADINE 10 MG TABLET PO SCH (08:07)
[2018-04-07] MEDS: PREGABALIN 50 MG CAPSULE PO SCH (08:07)
[2018-04-07] MEDS: DOCUSATE SODIUM 100 MG CAPSULE PO SCH (08:07)
[2018-04-07] MEDS: PANTOPRAZOLE SODIUM 40 MG DR TABLET PO SCH (08:07)
[2018-04-07] MEDS: CHOLECALCIFEROL (VIT D3) 1,000 UNITS TABLET PO SCH (08:07)
[2018-04-07] MEDS: BUDESONIDE/FORMOTEROL FUMARATE 160-4.5 MCG/PUFF 6.9 GM INHALER IH SCH (08:08)
[2018-04-07] MEDS: SPIRONOLACTONE 25 MG TABLET PO SCH (08:08)
[2018-04-07] MEDS: TIOTROPIUM BROMIDE 18 MCG/INH HANDIHALER [5] IH SCH (08:09)
[2018-04-07] MEDS: HEPARIN SODIUM,PORCINE 5,000 UNITS/ML VIAL SQ SCH (08:09)
[2018-04-07] MEDS: MAG HYDROX/AL HYDROX/SIMETH 30 ML SUSP UDCUP PO SCH (08:10)
[2018-04-07] MEDS: BRIMONIDINE TARTRATE 0.15% 5 ML OPHTHALMIC SOLUTION OU SCH (08:18)
[2018-04-07 11:29] VITALS: BP 125/60
== END 2018-04-07 11:45 | disposition home or self-care (01) | DRG 683 ==
LOC: EMS 15:10 → 6N 20:00
PROVIDERS: ADMIT Internal Medicine; ATTEND Internal Medicine
DX: N17.9 Acute kidney failure, unspecified (principal); N39.0 Urinary tract infection, site not specified; Z68.42 Body mass index [BMI] 45.0-49.9, adult; E78.5 Hyperlipidemia, unspecified; R10.9 Unspecified abdominal pain; D64.9 Anemia, unspecified; D73.4 Cyst of spleen; E66.01 Morbid (severe) obesity due to excess calories; E78.00 Pure hypercholesterolemia, unspecified; G89.29 Other chronic pain; I11.0 Hypertensive heart disease with heart failure; M54.9 Dorsalgia, unspecified; I25.10 Atherosclerotic heart disease of native coronary artery without angina pectoris; I48.2 Chronic atrial fibrillation; Z96.651 Presence of right artificial knee joint; M10.9 Gout, unspecified; I50.9 Heart failure, unspecified; J44.9 Chronic obstructive pulmonary disease, unspecified; Z90.49 Acquired absence of other specified parts of digestive tract; Z90.710 Acquired absence of both cervix and uterus; Z88.0 Allergy status to penicillin; Z91.041 Radiographic dye allergy status; Z88.8 Allergy status to other drugs, medicaments and biological substances; Z91.018 Allergy to other foods; Z88.6 Allergy status to analgesic agent; Z98.84 Bariatric surgery status; Z79.82 Long term (current) use of aspirin
CPT/HCPCS: 74176; 76700; 83735; 87086; 93005; 96361; 96374; 96375; 96376; 99285; A9585; J0744; J1644; J2270; J2405; J3490

== ENCOUNTER 2018-04-12 13:26 | Emergency (ER) | payer MEDICARE, OTHER ==
[~2018-04-12] VITALS: Ht 170.2 cm; Wt 137.2 kg
[~2018-04-12 13:26] MED LIST changes: +ALLO100T PO; -ALLO300 PO; +ATOR20TA86 PO; -ATOR40TA28 PO; -CYAN50008 PO; -DEXT15SY3 PO; -FERR89TA PO; -FURO40 PO; -LORA10TA7 PO; -LOSA50TA37 PO; -MAGOX PO; -MIRAUD PO; -MORP15 PO; -SPIR25 PO; -TRAZ-220 PO; -VERA-6 PO; -ZARO2.5 PO
[2018-04-12] MEDS ORDERED: HYDROCODONE/ACETAMINOPHEN 5-325 MG TABLET PO ONE (15:30)
[2018-04-12 16:42] LABS: EOSINOPHILS % (AUTO) 1.2 % (1.0-6.0); HEMATOCRIT 35.7 % (36-46); HEMOGLOBIN 11.6 g/dL (12.0-16.0); LYMPHOCYTES % (AUTO) 24.1 % (22.0-44.0); MEAN CORPUSCULAR HEMOGLOBIN 29.1 pg (26.0-34.0); MEAN CORPUSCULAR HGB CONC 32.6 G/dL (31.0-37.0); MEAN CORPUSCULAR VOLUME 89 fL (80-100); MONOCYTES # (AUTO) 0.6 K/uL (0.1-1.0); MONOCYTES % (AUTO) 6.9 % (2.0-9.0); NEUTROPHILS # (AUTO) 5.6 K/uL (1.8-7.7); NEUTROPHILS % (AUTO) 66.8 % (40.0-70.0); PLATELET COUNT (AUTO) 326 K/uL (150-450); RED BLOOD CELL COUNT(AUTO) 4.01 MIL/uL (4.00-5.20); RED CELL DISTRIBUTION WIDTH 15.6 % (11.5-14.5)
[2018-04-12 16:54] LABS: ANION GAP 9 mmol/L (8-16); CALCIUM, TOTAL 8.9 mg/dL (8.8-10.5); CARBON DIOXIDE 32 mmol/L (22-29); CHLORIDE 100 mmol/L (98-107); CREATININE 1.66 mg/dL (0.60-1.30); GLOMERULAR FILTR. RATE CALC 37 mL/min (>60); GLUCOSE,RANDOM 91 mg/dL (70-110); POTASSIUM 3.3 mmol/L (3.5-5.1); SODIUM SERUM 141 mmol/L (136-145); UREA NITROGEN, BLOOD 15 mg/dL (7-18)
[2018-04-12 17:20] LABS: ALANINE AMINOTRANSFERASE 22 U/L (12-78); ALKALINE PHOSPHATASE 101 U/L (46-116); ASPARTATE AMINOTRANSFERASE 30 U/L (15-37); BILIRUBIN,TOTAL 0.6 mg/dL (0.1-1.0); CREATINE KINASE, TOTAL 621 U/L (26-192); TOTAL PROTEIN, SERUM 8.1 g/dL (6.4-8.2)
[2018-04-12 17:34] LABS: APPEARANCE,URINE CLEAR (CLEAR); BILIRUBIN,URINE NEGATIVE (NEGATIVE); GLUCOSE, URINE (UA) NEGATIVE (NEGATIVE); KETONES,URINE NEGATIVE (NEGATIVE); LEUKOCYTE ESTERASE ,URINE NEGATIVE (NEGATIVE); NITRATE,URINE NEGATIVE (NEGATIVE); OCCULT BLOOD,URINE MODERATE (NEGATIVE); PH,URINE 6.5 (5.0-8.0); PROTEIN,URINE NEGATIVE (NEGATIVE); UROBILINOGEN,URINE 0.2 mg/dL (<=1.0)
[2018-04-12 17:48] LABS: BACTERIA,URINE None Seen /HPF (None Seen); SQUAMOUS EPITHELIAL CELL,UR Few /LPF (None Seen); WBC,URINE 0-2 /HPF (0-5)
[2018-04-12] MEDS: SODIUM CHLORIDE 0.9% 1,000 ML IV ONE ×2 (18:05→18:21)
[2018-04-12 18:26] VITALS: BP 149/70
[2018-04-13] MEDS ORDERED: MORP15TA70 PO (02:49)
[2018-04-13] MEDS ORDERED: TRAZ-220 PO (02:49)
[2018-04-13] MEDS ORDERED: FURO40 PO (02:49)
[2018-04-13] MEDS ORDERED: TIOT185 IH (02:49)
[2018-04-13] MEDS ORDERED: SPIR25 PO (02:49)
[2018-04-13] MEDS ORDERED: LORA10TA7 PO (02:49)
[2018-04-13] MEDS ORDERED: LOSA50TA37 PO (02:49)
[2018-04-13] MEDS ORDERED: BACL10TA PO (02:49)
== END 2018-04-12 18:32 | disposition home or self-care (01) ==
LOC: EMS 13:27
DX: M54.5 Low back pain (principal); I48.91 Unspecified atrial fibrillation; J45.909 Unspecified asthma, uncomplicated; I11.0 Hypertensive heart disease with heart failure; I50.9 Heart failure, unspecified; E78.00 Pure hypercholesterolemia, unspecified; J44.9 Chronic obstructive pulmonary disease, unspecified; Z90.710 Acquired absence of both cervix and uterus; Z95.1 Presence of aortocoronary bypass graft; Z90.49 Acquired absence of other specified parts of digestive tract; Z79.82 Long term (current) use of aspirin; Z88.5 Allergy status to narcotic agent; Z88.0 Allergy status to penicillin; Z88.8 Allergy status to other drugs, medicaments and biological substances; Z96.651 Presence of right artificial knee joint
CPT/HCPCS: 36415; 72110; 80053; 81001; 82550; 82553; 84484; 85025; 99285; J7030

== ENCOUNTER 2018-04-13 02:17 | Inpatient (IN) | payer MEDICARE, OTHER ==
[~2018-04-13] VITALS: Ht 170.2 cm; Wt 141.9 kg
[~2018-04-13 02:17] MED LIST changes: -BENZ-51 PO
[2018-04-13] MEDS ORDERED: BACL10TA PO (02:49)
[2018-04-13] MEDS ORDERED: LOSA50TA37 PO (02:49)
[2018-04-13] MEDS ORDERED: MORP15TA70 PO (02:49)
[2018-04-13] MEDS ORDERED: TIOT185 IH (02:49)
[2018-04-13] MEDS ORDERED: SPIR25 PO (02:49)
[2018-04-13] MEDS ORDERED: TRAZ-220 PO (02:49)
[2018-04-13] MEDS ORDERED: LORA10TA7 PO (02:49)
[2018-04-13] MEDS ORDERED: FURO40 PO (02:49)
[2018-04-13 04:41] LABS: BASOPHILS % (AUTO) 1.1 % (0.0-2.0); EOSINOPHILS % (AUTO) 1.9 % (1.0-6.0); HEMATOCRIT 35.1 % (36-46); HEMOGLOBIN 11.4 g/dL (12.0-16.0); LYMPHOCYTES % (AUTO) 23.4 % (22.0-44.0); MEAN CORPUSCULAR HEMOGLOBIN 28.9 pg (26.0-34.0); MEAN CORPUSCULAR HGB CONC 32.6 G/dL (31.0-37.0); MEAN CORPUSCULAR VOLUME 89 fL (80-100); MONOCYTES # (AUTO) 0.8 K/uL (0.1-1.0); MONOCYTES % (AUTO) 9.4 % (2.0-9.0); NEUTROPHILS # (AUTO) 5.5 K/uL (1.8-7.7); NEUTROPHILS % (AUTO) 64.2 % (40.0-70.0); PLATELET COUNT (AUTO) 309 K/uL (150-450); RED BLOOD CELL COUNT(AUTO) 3.97 MIL/uL (4.00-5.20); RED CELL DISTRIBUTION WIDTH 15.7 % (11.5-14.5)
[2018-04-13 04:42] LABS: ANION GAP 7 mmol/L (8-16); CALCIUM, TOTAL 8.9 mg/dL (8.8-10.5); CARBON DIOXIDE 32 mmol/L (22-29); CHLORIDE 100 mmol/L (98-107); CREATININE 1.78 mg/dL (0.60-1.30); GLOMERULAR FILTR. RATE CALC 34 mL/min (>60); GLUCOSE,RANDOM 109 mg/dL (70-110); POTASSIUM 3.5 mmol/L (3.5-5.1); SODIUM SERUM 139 mmol/L (136-145); UREA NITROGEN, BLOOD 16 mg/dL (7-18)
[2018-04-13 05:06] LABS: ALANINE AMINOTRANSFERASE 22 U/L (12-78); ALBUMIN 2.9 g/dL (3.4-5.0); ALKALINE PHOSPHATASE 98 U/L (46-116); ASPARTATE AMINOTRANSFERASE 33 U/L (15-37); BILIRUBIN,TOTAL 0.5 mg/dL (0.1-1.0); CREATINE KINASE MB 0.7 ng/mL (0-5); CREATINE KINASE, TOTAL 692 U/L (26-192); TOTAL PROTEIN, SERUM 7.7 g/dL (6.4-8.2)
[2018-04-13] MEDS ORDERED: SODIUM CHLORIDE 0.9% 1,000 ML IV ONE ×2 (05:30→10:00)
[2018-04-13 09:00] VITALS: BP 138/73
[2018-04-13] MEDS ORDERED: BISACODYL 10 MG RECTAL RECTAL SUPPOSITORY PR PRN (10:00)
[2018-04-13] MEDS ORDERED: ALBUTEROL SULFATE 2.5 MG/0.5 ML NEB SOLUTION NEB PRN (10:00)
[2018-04-13] MEDS ORDERED: ACETAMINOPHEN 325 MG TABLET PO PRN (10:00)
[2018-04-13] MEDS ORDERED: MAGNESIUM HYDROXIDE SUSPENSION 30 ML UDCUP PO PRN (10:00)
[2018-04-13] MEDS: ASPIRIN 81 MG CHEWABLE TABLET PO SCH (10:33)
[2018-04-13 11:21] VITALS: BP 136/14
[2018-04-13] MEDS: OxyCODONE HCL/ACETAMINOPHEN 5-325 MG TABLET PO PRN ×3 (14:07→23:18)
[2018-04-13 15:24] VITALS: BP 104/78
[2018-04-13] MEDS: HEPARIN SODIUM,PORCINE 5,000 UNITS/ML VIAL SQ SCH ×2 (16:41→23:18)
[2018-04-13] MEDS ORDERED: ONDANSETRON HCL 4 MG/2 ML VIAL IVP PRN (20:30)
[2018-04-13 20:56] VITALS: BP 125/65
[2018-04-13] MEDS: DOCUSATE SODIUM 100 MG CAPSULE PO SCH (20:57)
[2018-04-13] MEDS ORDERED: ATORVASTATIN CALCIUM 20 MG TABLET PO SCH (21:00)
[2018-04-13] MEDS ORDERED: 0.9% SODIUM CHLORIDE 5 ML NEB SOLUTION NEB ONE (21:36)
[2018-04-14 00:38] VITALS: BP 113/52
[2018-04-14] MEDS: OxyCODONE HCL/ACETAMINOPHEN 5-325 MG TABLET PO PRN (04:46)
[2018-04-14 04:58] VITALS: BP 121/63
[2018-04-14 06:37] LABS: CALCIUM, TOTAL 8.4 mg/dL (8.8-10.5); CREATININE 1.32 mg/dL (0.60-1.30); POTASSIUM 3.7 mmol/L (3.5-5.1)
[2018-04-14 07:41] VITALS: BP 123/68
[2018-04-14] MEDS: DOCUSATE SODIUM 100 MG CAPSULE PO SCH (09:00)
[2018-04-14] MEDS: HEPARIN SODIUM,PORCINE 5,000 UNITS/ML VIAL SQ SCH (09:20)
[2018-04-14] MEDS: ASPIRIN 81 MG CHEWABLE TABLET PO SCH (09:20)
== END 2018-04-14 13:00 | disposition home or self-care (01) | DRG 312 ==
LOC: EMS 02:18 → 5S 07:46
PROVIDERS: ADMIT Internal Medicine; ATTEND Internal Medicine
DX: R55 Syncope and collapse (principal); N17.9 Acute kidney failure, unspecified; R29.6 Repeated falls; W18.30XA Fall on same level, unspecified, initial encounter; I11.0 Hypertensive heart disease with heart failure; Z96.651 Presence of right artificial knee joint; M1A.9XX0 Chronic gout, unspecified, without tophus (tophi); I25.10 Atherosclerotic heart disease of native coronary artery without angina pectoris; E78.00 Pure hypercholesterolemia, unspecified; J44.9 Chronic obstructive pulmonary disease, unspecified; T75.89XA Other specified effects of external causes, initial encounter; E66.01 Morbid (severe) obesity due to excess calories; I50.9 Heart failure, unspecified; G47.33 Obstructive sleep apnea (adult) (pediatric); G89.29 Other chronic pain; Z88.0 Allergy status to penicillin; Z88.8 Allergy status to other drugs, medicaments and biological substances; Z88.1 Allergy status to other antibiotic agents; Z91.041 Radiographic dye allergy status; Z90.710 Acquired absence of both cervix and uterus; Z98.84 Bariatric surgery status; Y93.89 Activity, other specified; Y92.89 Other specified places as the place of occurrence of the external cause; Y99.8 Other external cause status
CPT/HCPCS: 70450; 72125; 82306; 84443; 87081; 93306; 94640; 96360; 97116; 97162; 99285; J1644; J2405; J7030

== ENCOUNTER 2019-08-01 00:44 | Inpatient (IN) | payer MEDICARE, OTHER ==
[~2019-08-01] VITALS: Ht 172.7 cm; Wt 121.9 kg
[~2019-08-01 00:44] MED LIST changes: -ALBU8.5H8 IH; +CHOL100018 PO; -HYDR-4069 PO; -IPRAHFA IH; -METO25XL PO; -PREG50 PO; -QUET25TA PO; +TIOT185 IH; -TRAVZOS OU; -VITAD1000 PO
[2019-08-01 01:50] LABS: BASOPHILS % (AUTO) 1.2 % (0.0-2.0); EOSINOPHILS % (AUTO) 1.7 % (1.0-6.0); HEMATOCRIT 38.1 % (36-46); HEMOGLOBIN 12.1 g/dL (12.0-16.0); LYMPHOCYTES # (AUTO) 2.1 K/uL (1.0-4.8); LYMPHOCYTES % (AUTO) 29.2 % (22.0-44.0); MEAN CORPUSCULAR HEMOGLOBIN 28.9 pg (26.0-34.0); MEAN CORPUSCULAR HGB CONC 31.8 G/dL (31.0-37.0); MEAN CORPUSCULAR VOLUME 91 fL (80-100); MONOCYTES # (AUTO) 0.4 K/uL (0.1-1.0); MONOCYTES % (AUTO) 6.1 % (2.0-9.0); NEUTROPHILS # (AUTO) 4.5 K/uL (1.8-7.7); NEUTROPHILS % (AUTO) 61.8 % (40.0-70.0); PLATELET COUNT (AUTO) 279 K/uL (150-450); RED BLOOD CELL COUNT(AUTO) 4.21 MIL/uL (4.00-5.20); RED CELL DISTRIBUTION WIDTH 14.7 % (11.5-14.5)
[2019-08-01 02:03] LABS: CREATININE 1.51 mg/dL (0.60-1.30); POTASSIUM 4.4 mmol/L (3.5-5.1)
[2019-08-01 02:13] LABS: ALBUMIN 3.2 g/dL (3.4-5.0); BILIRUBIN,TOTAL 0.5 mg/dL (0.1-1.0); TOTAL PROTEIN, SERUM 8.3 g/dL (6.4-8.2)
[2019-08-01] MEDS ORDERED: DICYCLOMINE HCL 20 MG TABLET PO ONE (02:45)
[2019-08-01] MEDS ORDERED: ONDANSETRON HCL 4 MG TABLET PO ONE (02:45)
[2019-08-01 03:06] LABS: APPEARANCE,URINE CLOUDY (CLEAR); BILIRUBIN,URINE NEGATIVE (NEGATIVE); GLUCOSE, URINE (UA) NEGATIVE (NEGATIVE); KETONES,URINE NEGATIVE (NEGATIVE); LEUKOCYTE ESTERASE ,URINE MODERATE (NEGATIVE); NITRATE,URINE NEGATIVE (NEGATIVE); OCCULT BLOOD,URINE NEGATIVE (NEGATIVE); PROTEIN,URINE NEGATIVE (NEGATIVE); UROBILINOGEN,URINE 0.2 mg/dL (<=1.0)
[2019-08-01] MEDS ORDERED: SODIUM CHLORIDE 0.9% 100 ML ONE (03:08)
[2019-08-01] MEDS ORDERED: IOVERSOL 350 MG/ML 100 ML VIAL ONE (03:08)
[2019-08-01 03:23] LABS: BACTERIA,URINE Few /HPF (None Seen); RBC,URINE 0-2 /HPF (0-2); SQUAMOUS EPITHELIAL CELL,UR Moderate /LPF (None Seen); WBC,URINE 26-50 /HPF (0-5)
[2019-08-01] MEDS ORDERED: LIDOCAINE 2% 5 ML JELLY TP ONE (05:30)
[2019-08-01] MEDS ORDERED: MORPHINE SULFATE 4 MG/ML SYRINGE IVP ONE (05:30)
[2019-08-01] MEDS ORDERED: 0.9% SODIUM CHLORIDE 10 ML SYRINGE IVP PRN ×2 (06:15→08:00)
[2019-08-01] MEDS ORDERED: ACETAMINOPHEN 325 MG TABLET PO PRN ×2 (06:15→08:00)
[2019-08-01] MEDS ORDERED: ONDANSETRON HCL 4 MG/2 ML VIAL IVP PRN (06:15)
[2019-08-01] MEDS ORDERED: HydrALAZINE HCL 20 MG/ML VIAL IVP PRN (08:00)
[2019-08-01] MEDS ORDERED: ALBUTEROL SULFATE 2.5 MG/0.5 ML NEB SOLUTION NEB PRN (08:00)
[2019-08-01] MEDS ORDERED: IPRATROPIUM BROMIDE 0.5 MG/2.5 ML NEB SOLUTION NEB PRN (08:00)
[2019-08-01] MEDS: SODIUM CHLORIDE 0.9% 1,000 ML IV SCH ×2 (08:54→23:24)
[2019-08-01] MEDS: ONDANSETRON HCL 4 MG/2 ML VIAL IVP PRN ×3 (08:55→21:06)
[2019-08-01] MEDS: MORPHINE SULFATE 4 MG/ML SYRINGE IVP PRN ×3 (08:55→15:19)
[2019-08-01] MEDS: TIOTROPIUM BROMIDE 18 MCG/INH HANDIHALER [5] IH SCH (09:55)
[2019-08-01] MEDS: PANTOPRAZOLE SODIUM 40 MG/VIAL IVP SCH (09:55)
[2019-08-01] MEDS: BUDESONIDE/FORMOTEROL FUMARATE 160-4.5 MCG/PUFF 6.9 GM INHALER IH SCH (09:55)
[2019-08-01 13:49] VITALS: BP 145/78
[2019-08-01 15:43] VITALS: BP 157/70
[2019-08-01] MEDS ORDERED: CHOL100018 PO (19:46)
[2019-08-01 19:55] VITALS: BP 148/69
[2019-08-01] MEDS: MORPHINE SULFATE 2 MG/ML SYRINGE IVP PRN (21:06)
[2019-08-02 00:35] VITALS: BP 152/60
[2019-08-02] MEDS: MORPHINE SULFATE 2 MG/ML SYRINGE IVP PRN ×4 (01:24→20:29)
[2019-08-02] MEDS: BUDESONIDE/FORMOTEROL FUMARATE 160-4.5 MCG/PUFF 6.9 GM INHALER IH SCH ×3 (01:26→20:32)
[2019-08-02] MEDS ORDERED: HydrALAZINE HCL 10 MG TABLET PO PRN (01:45)
[2019-08-02 04:43] VITALS: BP 153/70
[2019-08-02 05:57] LABS: BASOPHILS % (AUTO) 0.2 % (0.0-2.0); EOSINOPHILS % (AUTO) 1.6 % (1.0-6.0); HEMOGLOBIN 11.9 g/dL (12.0-16.0); LYMPHOCYTES # (AUTO) 1.4 K/uL (1.0-4.8); LYMPHOCYTES % (AUTO) 23.3 % (22.0-44.0); MEAN CORPUSCULAR HEMOGLOBIN 29.8 pg (26.0-34.0); MEAN CORPUSCULAR HGB CONC 33.2 G/dL (31.0-37.0); MEAN CORPUSCULAR VOLUME 90 fL (80-100); MONOCYTES # (AUTO) 0.8 K/uL (0.1-1.0); MONOCYTES % (AUTO) 12.4 % (2.0-9.0); NEUTROPHILS # (AUTO) 3.9 K/uL (1.8-7.7); NEUTROPHILS % (AUTO) 62.5 % (40.0-70.0); PLATELET COUNT (AUTO) 272 K/uL (150-450); RED BLOOD CELL COUNT(AUTO) 4.01 MIL/uL (4.00-5.20)
[2019-08-02 06:26] LABS: ALBUMIN 2.6 g/dL (3.4-5.0); BILIRUBIN,TOTAL 0.5 mg/dL (0.1-1.0); CALCIUM, TOTAL 8.3 mg/dL (8.8-10.5); CREATININE 1.22 mg/dL (0.60-1.30); POTASSIUM 3.7 mmol/L (3.5-5.1); TOTAL PROTEIN, SERUM 7.2 g/dL (6.4-8.2)
[2019-08-02] MEDS: ONDANSETRON HCL 4 MG/2 ML VIAL IVP PRN ×4 (06:55→23:06)
[2019-08-02] MEDS ORDERED: SODIUM PHOS/SODIUM BIPHOS 133 ML ENEMA PR PRN (07:15)
[2019-08-02] MEDS: LACTULOSE 20 GM/30 ML SOLUTION UDCUP NG SCH ×3 (08:18→20:32)
[2019-08-02] MEDS: TIOTROPIUM BROMIDE 18 MCG/INH HANDIHALER [5] IH SCH (08:19)
[2019-08-02 08:37] VITALS: BP 131/61
[2019-08-02] MEDS: PANTOPRAZOLE SODIUM 40 MG/VIAL IVP SCH (08:45)
[2019-08-02 15:00] VITALS: BP 139/67
[2019-08-02] MEDS: SODIUM CHLORIDE 0.9% 1,000 ML IV SCH (16:57)
[2019-08-02] MEDS: BENZOCAINE 20% 50 MCG/SPRAY 57 GM TP PRN ×2 (18:05→23:01)
[2019-08-02 19:57] VITALS: BP 162/71
[2019-08-03] VITALS (7 sets, daily range): BP systolic 144–168; BP diastolic 61–81
[2019-08-03] MEDS: MORPHINE SULFATE 2 MG/ML SYRINGE IVP PRN ×5 (01:23→21:24)
[2019-08-03] MEDS: BENZOCAINE 20% 50 MCG/SPRAY 57 GM TP PRN (03:28)
[2019-08-03 05:50] LABS: BASOPHILS % (AUTO) 0.1 % (0.0-2.0); EOSINOPHILS % (AUTO) 0.5 % (1.0-6.0); HEMATOCRIT 35.1 % (36-46); HEMOGLOBIN 11.7 g/dL (12.0-16.0); LYMPHOCYTES # (AUTO) 1.5 K/uL (1.0-4.8); LYMPHOCYTES % (AUTO) 17.8 % (22.0-44.0); MEAN CORPUSCULAR HEMOGLOBIN 29.9 pg (26.0-34.0); MEAN CORPUSCULAR HGB CONC 33.2 G/dL (31.0-37.0); MEAN CORPUSCULAR VOLUME 90 fL (80-100); MONOCYTES % (AUTO) 11.7 % (2.0-9.0); NEUTROPHILS % (AUTO) 69.9 % (40.0-70.0); PLATELET COUNT (AUTO) 237 K/uL (150-450); RED CELL DISTRIBUTION WIDTH 14.6 % (11.5-14.5)
[2019-08-03 06:20] LABS: ALBUMIN 2.6 g/dL (3.4-5.0); BILIRUBIN,TOTAL 0.4 mg/dL (0.1-1.0); CALCIUM, TOTAL 8.3 mg/dL (8.8-10.5); CREATININE 1.15 mg/dL (0.60-1.30); POTASSIUM 3.8 mmol/L (3.5-5.1); TOTAL PROTEIN, SERUM 7.2 g/dL (6.4-8.2)
[2019-08-03] MEDS: TIOTROPIUM BROMIDE 18 MCG/INH HANDIHALER [5] IH SCH (08:53)
[2019-08-03] MEDS: PANTOPRAZOLE SODIUM 40 MG/VIAL IVP SCH (08:54)
[2019-08-03] MEDS: LACTULOSE 20 GM/30 ML SOLUTION UDCUP NG SCH ×3 (08:54→20:04)
[2019-08-03] MEDS: ONDANSETRON HCL 4 MG/2 ML VIAL IVP PRN (08:54)
[2019-08-03] MEDS: BUDESONIDE/FORMOTEROL FUMARATE 160-4.5 MCG/PUFF 6.9 GM INHALER IH SCH ×2 (08:54→20:04)
[2019-08-03] MEDS: SODIUM CHLORIDE 0.9% 1,000 ML IV SCH (08:55)
[2019-08-03] MEDS ORDERED: *CLINICAL-LEVOFLOXACIN IVPB DOSING CLINICAL ONE (11:00)
[2019-08-03] MEDS: LEVOFLOXACIN 750 MG/D5% WATER 150 ML IV SCH (12:18)
[2019-08-03] MEDS ORDERED: METOCLOPRAMIDE HCL 5 MG/ML 2 ML VIAL IVP PRN (14:15)
[2019-08-03] MEDS: AmLODIPine BESYLATE 10 MG TABLET PO SCH (15:22)
[2019-08-04] MEDS: MORPHINE SULFATE 2 MG/ML SYRINGE IVP PRN ×4 (02:13→21:33)
[2019-08-04] MEDS: SODIUM CHLORIDE 0.9% 1,000 ML IV SCH ×2 (02:13→12:03)
[2019-08-04 04:43] VITALS: BP 161/75
[2019-08-04 05:40] LABS: BASOPHILS % (AUTO) 0.6 % (0.0-2.0); EOSINOPHILS % (AUTO) 1.2 % (1.0-6.0); HEMATOCRIT 33.7 % (36-46); LYMPHOCYTES % (AUTO) 22.1 % (22.0-44.0); MEAN CORPUSCULAR HEMOGLOBIN 29.2 pg (26.0-34.0); MEAN CORPUSCULAR HGB CONC 32.5 G/dL (31.0-37.0); MEAN CORPUSCULAR VOLUME 90 fL (80-100); MONOCYTES # (AUTO) 0.9 K/uL (0.1-1.0); MONOCYTES % (AUTO) 10.5 % (2.0-9.0); NEUTROPHILS # (AUTO) 5.9 K/uL (1.8-7.7); NEUTROPHILS % (AUTO) 65.6 % (40.0-70.0); PLATELET COUNT (AUTO) 232 K/uL (150-450); RED BLOOD CELL COUNT(AUTO) 3.75 MIL/uL (4.00-5.20); RED CELL DISTRIBUTION WIDTH 14.7 % (11.5-14.5)
[2019-08-04 05:52] LABS: CALCIUM, TOTAL 8.4 mg/dL (8.8-10.5); CREATININE 1.18 mg/dL (0.60-1.30); POTASSIUM 3.5 mmol/L (3.5-5.1)
[2019-08-04 07:46] VITALS: BP 135/50
[2019-08-04] MEDS: LACTULOSE 20 GM/30 ML SOLUTION UDCUP NG SCH ×3 (08:32→20:36)
[2019-08-04] MEDS: PANTOPRAZOLE SODIUM 40 MG/VIAL IVP SCH (08:33)
[2019-08-04] MEDS: TIOTROPIUM BROMIDE 18 MCG/INH HANDIHALER [5] IH SCH (08:33)
[2019-08-04] MEDS: ONDANSETRON HCL 4 MG/2 ML VIAL IVP PRN ×2 (08:33→14:12)
[2019-08-04] MEDS: BUDESONIDE/FORMOTEROL FUMARATE 160-4.5 MCG/PUFF 6.9 GM INHALER IH SCH ×2 (08:33→20:36)
[2019-08-04] MEDS: AmLODIPine BESYLATE 10 MG TABLET PO SCH (08:33)
[2019-08-04 11:00] VITALS: BP 124/52
[2019-08-04] MEDS: LEVOFLOXACIN 750 MG/D5% WATER 150 ML IV SCH (12:02)
[2019-08-04 15:05] VITALS: BP 122/50
[2019-08-04] MEDS: GuaiFENesin/D-METHORPHAN [SUGAR-FREE] 200-20MG/10 ML SYRUP UDCUP PO PRN ×2 (16:23→23:53)
[2019-08-04 22:28] VITALS: BP 127/64
[2019-08-04 23:50] VITALS: BP 125/51
[2019-08-05 04:42] VITALS: BP 130/57
[2019-08-05] MEDS ORDERED: TRAZ-186 PO (06:20)
[2019-08-05] MEDS ORDERED: QUET50TA PO (06:20)
[2019-08-05 07:25] VITALS: BP 103/69
[2019-08-05 07:35] LABS: BASOPHILS % (AUTO) 0.7 % (0.0-2.0); HEMATOCRIT 34.8 % (36-46); HEMOGLOBIN 11.5 g/dL (12.0-16.0); LYMPHOCYTES # (AUTO) 1.8 K/uL (1.0-4.8); LYMPHOCYTES % (AUTO) 23.7 % (22.0-44.0); MEAN CORPUSCULAR HEMOGLOBIN 29.8 pg (26.0-34.0); MEAN CORPUSCULAR HGB CONC 32.9 G/dL (31.0-37.0); MEAN CORPUSCULAR VOLUME 90 fL (80-100); MONOCYTES # (AUTO) 0.6 K/uL (0.1-1.0); MONOCYTES % (AUTO) 7.5 % (2.0-9.0); NEUTROPHILS % (AUTO) 66.1 % (40.0-70.0); PLATELET COUNT (AUTO) 260 K/uL (150-450); RED BLOOD CELL COUNT(AUTO) 3.85 MIL/uL (4.00-5.20)
[2019-08-05 07:44] LABS: ANION GAP 8 mmol/L (8-16); CALCIUM, TOTAL 8.9 mg/dL (8.8-10.5); CARBON DIOXIDE 29 mmol/L (22-29); CHLORIDE 103 mmol/L (98-107); CREATININE 1.06 mg/dL (0.60-1.30); GLOMERULAR FILTR. RATE CALC > 60 mL/min (>60); GLUCOSE,RANDOM 102 mg/dL (70-110); POTASSIUM 3.5 mmol/L (3.5-5.1); SODIUM SERUM 140 mmol/L (136-145); UREA NITROGEN, BLOOD 9 mg/dL (7-18)
[2019-08-05] MEDS: PANTOPRAZOLE SODIUM 40 MG/VIAL IVP SCH (08:13)
[2019-08-05] MEDS: LACTULOSE 20 GM/30 ML SOLUTION UDCUP NG SCH (08:13)
[2019-08-05] MEDS: AmLODIPine BESYLATE 10 MG TABLET PO SCH (08:13)
[2019-08-05] MEDS: BUDESONIDE/FORMOTEROL FUMARATE 160-4.5 MCG/PUFF 6.9 GM INHALER IH SCH (08:14)
[2019-08-05] MEDS: TIOTROPIUM BROMIDE 18 MCG/INH HANDIHALER [5] IH SCH (08:14)
[2019-08-05] MEDS: MORPHINE SULFATE 2 MG/ML SYRINGE IVP PRN (08:24)
[2019-08-05 11:02] VITALS: BP 128/50
[2019-08-05] MEDS ORDERED: DOCU-132 PO (11:06)
[2019-08-05] MEDS ORDERED: PANT20TA PO (11:06)
[2019-08-05] MEDS: LEVOFLOXACIN 750 MG/D5% WATER 150 ML IV SCH (12:00)
== END 2019-08-05 12:45 | disposition home or self-care (01) | DRG 388 ==
LOC: EMS 00:45 → 4E 09:03
PROVIDERS: ADMIT Internal Medicine; ATTEND Internal Medicine
PROC: 0D9670Z Drainage of Stomach with Drainage Device, Via Natural or Artificial Opening (ICD-10-PCS; principal; 2019-08-02)
DX: K56.600 Partial intestinal obstruction, unspecified as to cause (principal); E43 Unspecified severe protein-calorie malnutrition; N39.0 Urinary tract infection, site not specified; Z68.41 Body mass index [BMI] 40.0-44.9, adult; E66.01 Morbid (severe) obesity due to excess calories; E78.00 Pure hypercholesterolemia, unspecified; I10 Essential (primary) hypertension; J45.909 Unspecified asthma, uncomplicated; E78.5 Hyperlipidemia, unspecified; I48.91 Unspecified atrial fibrillation; Z96.651 Presence of right artificial knee joint; I11.0 Hypertensive heart disease with heart failure; M10.9 Gout, unspecified; I50.9 Heart failure, unspecified; J44.9 Chronic obstructive pulmonary disease, unspecified; Z87.11 Personal history of peptic ulcer disease; Z90.49 Acquired absence of other specified parts of digestive tract; Z90.710 Acquired absence of both cervix and uterus; Z91.041 Radiographic dye allergy status; Z88.0 Allergy status to penicillin; Z91.018 Allergy to other foods
CPT/HCPCS: 74018; 74019; 74176; 74250; 87086; 97116; 97162; 97530; C9113; G0378; J1956; J2270; J2405; J2765; J7030; J7050; Q0162

== ENCOUNTER 2021-10-24 17:04 | Emergency (ER) | payer MEDICARE, OTHER ==
[~2021-10-24] VITALS: Ht 165.1 cm; Wt 123.6 kg
[~2021-10-24 17:04] MED LIST changes: -ALLO100T PO; +ALLO100T2 PO; -ASPI-1182 PO; +ASPI-1444 PO; +CHOL-35 PO; -CHOL100018 PO; +DOCU-132 PO; -OMEP20 PO; +PANT20TA PO; +QUET50TA PO; +TRAZ-186 PO
[2021-10-24] MEDS ORDERED: HYDROmorphone 2 MG/ML VIAL IVP ONE ×2 (18:30→20:30)
[2021-10-24] MEDS ORDERED: SODIUM CHLORIDE 0.9% 1,000 ML IV ONE (18:30)
[2021-10-24 18:46] LABS: BASOPHILS % (AUTO) 0.9 % (0.0-2.0); EOSINOPHILS % (AUTO) 1.8 % (1.0-6.0); HEMATOCRIT 38.9 % (36-46); HEMOGLOBIN 12.6 g/dL (12.0-16.0); LYMPHOCYTES % (AUTO) 26.1 % (22.0-44.0); MEAN CORPUSCULAR HEMOGLOBIN 29.3 pg (26.0-34.0); MEAN CORPUSCULAR HGB CONC 32.4 G/dL (31.0-37.0); MEAN CORPUSCULAR VOLUME 90 fL (80-100); MONOCYTES # (AUTO) 0.5 K/uL (0.1-1.0); MONOCYTES % (AUTO) 6.3 % (2.0-9.0); NEUTROPHILS % (AUTO) 64.9 % (40.0-70.0); PLATELET COUNT (AUTO) 304 K/uL (150-450); RED BLOOD CELL COUNT(AUTO) 4.31 MIL/uL (4.00-5.20); RED CELL DISTRIBUTION WIDTH 14.6 % (11.5-14.5)
[2021-10-24 18:55] LABS: CALCIUM, TOTAL 9.4 mg/dL (8.8-10.5); CREATININE 1.31 mg/dL (0.60-1.30); POTASSIUM 3.9 mmol/L (3.5-5.1)
[2021-10-24 19:01] LABS: ALBUMIN 3.3 g/dL (3.4-5.0); BILIRUBIN,TOTAL 0.6 mg/dL (0.1-1.0); TOTAL PROTEIN, SERUM 8.6 g/dL (6.4-8.2)
[2021-10-24 20:19] LABS: APPEARANCE,URINE CLEAR (CLEAR); BILIRUBIN,URINE NEGATIVE (NEGATIVE); GLUCOSE, URINE (UA) NEGATIVE (NEGATIVE); KETONES,URINE NEGATIVE (NEGATIVE); LEUKOCYTE ESTERASE ,URINE NEGATIVE (NEGATIVE); NITRATE,URINE NEGATIVE (NEGATIVE); OCCULT BLOOD,URINE NEGATIVE (NEGATIVE); PROTEIN,URINE NEGATIVE (NEGATIVE); SPECIFIC GRAVITIY, URINE 1.008 (1.003-1.030); UROBILINOGEN,URINE <=1.0 mg/dL (<=1.0)
[2021-10-24 22:54] VITALS: BP 130/69
== END 2021-10-24 23:01 | disposition home or self-care (01) ==
LOC: EMS 17:12
DX: E86.0 Dehydration (principal); R10.9 Unspecified abdominal pain; I11.0 Hypertensive heart disease with heart failure; I50.9 Heart failure, unspecified; I48.91 Unspecified atrial fibrillation; J44.9 Chronic obstructive pulmonary disease, unspecified; E78.00 Pure hypercholesterolemia, unspecified; Z88.0 Allergy status to penicillin; Z88.5 Allergy status to narcotic agent; Z88.6 Allergy status to analgesic agent; Z79.82 Long term (current) use of aspirin; Z79.899 Other long term (current) drug therapy
CPT/HCPCS: 36415; 74176; 80053; 81003; 83690; 84484; 85025; 93005; 96361; 96374; 96376; 99285; J1170; J7030

== ENCOUNTER 2022-10-12 09:59 | Inpatient (IN) | payer MEDICARE, OTHER ==
[~2022-10-12] VITALS: Ht 172.7 cm; Wt 128.9 kg
[~2022-10-12 09:59] MED LIST changes: +ALLO-97 PO; -ALLO100T2 PO; -CHOL-35 PO; +CHOL25TA4 PO
[2022-10-12] MEDS ORDERED: VERA-25 PO (10:27)
[2022-10-12] MEDS ORDERED: QUET100T34 PO (10:27)
[2022-10-12] MEDS ORDERED: MORP15TA9 PO (10:27)
[2022-10-12] MEDS ORDERED: LATA2.5D14 OU (10:27)
[2022-10-12] MEDS ORDERED: ESCI5TAB16 PO (10:27)
[2022-10-12] MEDS ORDERED: ONDA4TAB96 PO (10:27)
[2022-10-12] MEDS ORDERED: PREG150C46 PO (10:27)
[2022-10-12] MEDS ORDERED: FURO40TA5 PO (10:27)
[2022-10-12] MEDS ORDERED: CYCL5TAB PO (10:27)
[2022-10-12] MEDS ORDERED: CETI10TA58 PO (10:27)
[2022-10-12] MEDS ORDERED: OMEP20CA12 PO (10:27)
[2022-10-12] MEDS ORDERED: GABA-771 PO (10:27)
[2022-10-12] MEDS ORDERED: POTA-92 PO (10:27)
[2022-10-12] MEDS ORDERED: DOCU100C33 PO (10:27)
[2022-10-12] MEDS ORDERED: SPIR100T5 PO (10:27)
[2022-10-12 10:56] LABS: COVID AG,FIA SOURCE NASAL SWAB
[2022-10-12 11:19] LABS: INFLUENZA TYPE A NEGATIVE FOR TYPE A (NEGATIVE)
[2022-10-12 11:33] LABS: BASOPHILS % (AUTO) 0.1 % (0.0-2.0); EOSINOPHILS % (AUTO) 0.1 % (1.0-6.0); HEMATOCRIT 40.5 % (36-46); HEMOGLOBIN 12.7 g/dL (12.0-16.0); LYMPHOCYTES # (AUTO) 0.8 K/uL (1.0-4.8); LYMPHOCYTES % (AUTO) 7.9 % (22.0-44.0); MEAN CORPUSCULAR HEMOGLOBIN 27.6 pg (26.0-34.0); MEAN CORPUSCULAR HGB CONC 31.4 G/dL (31.0-37.0); MEAN CORPUSCULAR VOLUME 88 fL (80-100); MONOCYTES # (AUTO) 0.5 K/uL (0.1-1.0); MONOCYTES % (AUTO) 4.8 % (2.0-9.0); NEUTROPHILS # (AUTO) 9.1 K/uL (1.8-7.7); PLATELET COUNT (AUTO) 292 K/uL (150-450); RED BLOOD CELL COUNT(AUTO) 4.61 MIL/uL (4.00-5.20)
[2022-10-12 11:34] LABS: NEUTROPHILS % (AUTO) 87.1 % (40.0-70.0)
[2022-10-12 11:42] LABS: INFLUENZA TYPE B NEGATIVE FOR TYPE B (NEGATIVE)
[2022-10-12 11:44] LABS: CALCIUM, TOTAL 10.1 mg/dL (8.8-10.5); CREATININE 1.59 mg/dL (0.60-1.30); POTASSIUM 4.7 mmol/L (3.5-5.1)
[2022-10-12] MEDS ORDERED: MORPHINE SULFATE 4 MG/ML SYRINGE IM ONE (11:45)
[2022-10-12 11:47] LABS: INR 1.1 (0.9-1.1); PROTHROMBIN TIME 11.8 SEC (9.4-11.6)
[2022-10-12 11:49] LABS: ALBUMIN 3.4 g/dL (3.4-5.0); BILIRUBIN,TOTAL 0.4 mg/dL (0.1-1.0); TOTAL PROTEIN, SERUM 9.6 g/dL (6.4-8.2)
[2022-10-12] MEDS ORDERED: IPRATROPIUM BROMIDE 0.5 MG/2.5 ML NEB SOLUTION NEB PRN (15:00)
[2022-10-12] MEDS ORDERED: DEXTROSE 5%-0.45% SODIUM CHL 1,000 ML IV ONE (15:00)
[2022-10-12] MEDS ORDERED: MAGNESIUM HYDROXIDE SUSPENSION 30 ML UDCUP PO PRN (15:00)
[2022-10-12] MEDS ORDERED: BISACODYL 10 MG RECTAL RECTAL SUPPOSITORY PR PRN (15:00)
[2022-10-12] MEDS ORDERED: ONDANSETRON HCL 4 MG/2 ML VIAL IVP PRN (15:00)
[2022-10-12] MEDS ORDERED: ACETAMINOPHEN 325 MG TABLET PO PRN (15:00)
[2022-10-12] MEDS ORDERED: ZOLPIDEM TARTRATE 5 MG TABLET PO PRN (15:00)
[2022-10-12] MEDS: HEPARIN SODIUM,PORCINE 5,000 UNITS/ML VIAL SQ SCH ×2 (15:39→23:31)
[2022-10-12] MEDS ORDERED: HydrALAZINE HCL 20 MG/ML VIAL IVP PRN (16:00)
[2022-10-12] MEDS: DOCUSATE SODIUM 100 MG CAPSULE PO SCH (21:00)
[2022-10-12 22:15] VITALS: BP 173/104
[2022-10-12] MEDS: LATANOPROST 0.005% 2.5 ML OPHTHALMIC SOLUTION OU SCH (22:42)
[2022-10-12] MEDS: BUDESONIDE/FORMOTEROL FUMARATE 160-4.5 MCG/PUFF 10.2 GM INHALER IH SCH (22:42)
[2022-10-12] MEDS ORDERED: LABETALOL HCL 5 MG/ML 20 ML VIAL IVP PRN (23:15)
[2022-10-12 23:53] VITALS: BP 166/75
[2022-10-13 01:30] VITALS: BP 138/70
[2022-10-13 08:01] VITALS: BP 141/74
[2022-10-13] MEDS ORDERED: BARIUM SULFATE 0.1% SUSPENSION 450 ML BOTTLE NG ONE (08:15)
[2022-10-13] MEDS: HEPARIN SODIUM,PORCINE 5,000 UNITS/ML VIAL SQ SCH ×2 (08:35→16:55)
[2022-10-13] MEDS: PANTOPRAZOLE SODIUM 40 MG/VIAL IVP SCH (08:35)
[2022-10-13] MEDS: DOCUSATE SODIUM 100 MG CAPSULE PO SCH ×2 (08:42→20:02)
[2022-10-13] MEDS: BUDESONIDE/FORMOTEROL FUMARATE 160-4.5 MCG/PUFF 10.2 GM INHALER IH SCH ×2 (09:10→20:02)
[2022-10-13] MEDS: TIOTROPIUM BROMIDE 18 MCG/INH HANDIHALER [5] IH SCH (09:51)
[2022-10-13] MEDS: DEXTROSE 5%-0.45% SODIUM CHL 1,000 ML IV SCH (15:19)
[2022-10-13 15:26] VITALS: BP 141/77
[2022-10-13 17:37] LABS: APPEARANCE,URINE CLEAR (CLEAR); BILIRUBIN,URINE NEGATIVE (NEGATIVE); GLUCOSE, URINE (UA) NEGATIVE (NEGATIVE); KETONES,URINE NEGATIVE (NEGATIVE); LEUKOCYTE ESTERASE ,URINE LARGE (NEGATIVE); NITRATE,URINE NEGATIVE (NEGATIVE); OCCULT BLOOD,URINE NEGATIVE (NEGATIVE); PH,URINE 5.5 (5.0-8.0); PROTEIN,URINE TRACE mg/dL (NEGATIVE); SPECIFIC GRAVITIY, URINE 1.025 (1.003-1.030); UROBILINOGEN,URINE <=1.0 mg/dL (<=1.0)
[2022-10-13 17:46] LABS: BACTERIA,URINE Moderate /HPF (None Seen); RBC,URINE 0-2 /HPF (0-2); SQUAMOUS EPITHELIAL CELL,UR Few /LPF (None Seen)
[2022-10-13] MEDS: MORPHINE SULFATE 2 MG/ML SYRINGE IVP PRN (19:35)
[2022-10-13] MEDS: LATANOPROST 0.005% 2.5 ML OPHTHALMIC SOLUTION OU SCH (20:02)
[2022-10-13 21:30] VITALS: BP 149/71
[2022-10-14] MEDS: HEPARIN SODIUM,PORCINE 5,000 UNITS/ML VIAL SQ SCH ×3 (00:04→15:33)
[2022-10-14] MEDS: MORPHINE SULFATE 2 MG/ML SYRINGE IVP PRN (04:52)
[2022-10-14] MEDS: DEXTROSE 5%-0.45% SODIUM CHL 1,000 ML IV SCH ×2 (04:52→18:14)
[2022-10-14 05:15] VITALS: BP 141/63
[2022-10-14 07:10] LABS: BASOPHILS % (AUTO) 0.7 % (0.0-2.0); EOSINOPHILS % (AUTO) 0.9 % (1.0-6.0); HEMATOCRIT 36.9 % (36-46); HEMOGLOBIN 12.1 g/dL (12.0-16.0); LYMPHOCYTES # (AUTO) 1.3 K/uL (1.0-4.8); LYMPHOCYTES % (AUTO) 16.9 % (22.0-44.0); MEAN CORPUSCULAR HEMOGLOBIN 28.8 pg (26.0-34.0); MEAN CORPUSCULAR HGB CONC 32.7 G/dL (31.0-37.0); MEAN CORPUSCULAR VOLUME 88 fL (80-100); MONOCYTES # (AUTO) 0.8 K/uL (0.1-1.0); MONOCYTES % (AUTO) 10.7 % (2.0-9.0); NEUTROPHILS # (AUTO) 5.6 K/uL (1.8-7.7); NEUTROPHILS % (AUTO) 70.8 % (40.0-70.0); PLATELET COUNT (AUTO) 221 K/uL (150-450); RED BLOOD CELL COUNT(AUTO) 4.19 MIL/uL (4.00-5.20); RED CELL DISTRIBUTION WIDTH 15.3 % (11.5-14.5)
[2022-10-14 07:21] LABS: ALBUMIN 2.7 g/dL (3.4-5.0); BILIRUBIN,TOTAL 0.5 mg/dL (0.1-1.0); CREATININE 1.37 mg/dL (0.60-1.30); TOTAL PROTEIN, SERUM 7.3 g/dL (6.4-8.2)
[2022-10-14] MEDS: TIOTROPIUM BROMIDE 18 MCG/INH HANDIHALER [5] IH SCH (09:06)
[2022-10-14] MEDS: PANTOPRAZOLE SODIUM 40 MG/VIAL IVP SCH (09:08)
[2022-10-14] MEDS: DOCUSATE SODIUM 100 MG CAPSULE PO SCH ×2 (09:08→20:26)
[2022-10-14] MEDS: BUDESONIDE/FORMOTEROL FUMARATE 160-4.5 MCG/PUFF 10.2 GM INHALER IH SCH ×2 (09:12→20:25)
[2022-10-14 10:05] VITALS: BP 141/71
[2022-10-14] MEDS: HYDROCODONE/ACETAMINOPHEN 5-325 MG TABLET PO PRN ×2 (14:54→21:51)
[2022-10-14 17:09] VITALS: BP 138/69
[2022-10-14 20:09] VITALS: BP 133/64
[2022-10-14] MEDS: LATANOPROST 0.005% 2.5 ML OPHTHALMIC SOLUTION OU SCH (20:26)
[2022-10-15] MEDS: HEPARIN SODIUM,PORCINE 5,000 UNITS/ML VIAL SQ SCH ×3 (00:34→15:53)
[2022-10-15 04:01] VITALS: BP 138/71
[2022-10-15 07:39] LABS: BASOPHILS % (AUTO) 0.3 % (0.0-2.0); EOSINOPHILS % (AUTO) 2.5 % (1.0-6.0); HEMATOCRIT 35.7 % (36-46); HEMOGLOBIN 11.4 g/dL (12.0-16.0); LYMPHOCYTES # (AUTO) 1.5 K/uL (1.0-4.8); LYMPHOCYTES % (AUTO) 25.5 % (22.0-44.0); MEAN CORPUSCULAR HGB CONC 31.9 G/dL (31.0-37.0); MEAN CORPUSCULAR VOLUME 88 fL (80-100); MONOCYTES # (AUTO) 0.7 K/uL (0.1-1.0); MONOCYTES % (AUTO) 12.7 % (2.0-9.0); NEUTROPHILS # (AUTO) 3.4 K/uL (1.8-7.7); PLATELET COUNT (AUTO) 223 K/uL (150-450); RED BLOOD CELL COUNT(AUTO) 4.07 MIL/uL (4.00-5.20); RED CELL DISTRIBUTION WIDTH 15.3 % (11.5-14.5)
[2022-10-15 07:54] LABS: ALBUMIN 2.4 g/dL (3.4-5.0); BILIRUBIN,TOTAL 0.5 mg/dL (0.1-1.0); CALCIUM, TOTAL 8.9 mg/dL (8.8-10.5); CREATININE 1.22 mg/dL (0.60-1.30); POTASSIUM 3.3 mmol/L (3.5-5.1); TOTAL PROTEIN, SERUM 6.9 g/dL (6.4-8.2)
[2022-10-15 08:03] VITALS: BP 144/80
[2022-10-15] MEDS: HYDROCODONE/ACETAMINOPHEN 5-325 MG TABLET PO PRN (08:14)
[2022-10-15] MEDS: PANTOPRAZOLE SODIUM 40 MG/VIAL IVP SCH (08:14)
[2022-10-15] MEDS: DOCUSATE SODIUM 100 MG CAPSULE PO SCH (08:14)
[2022-10-15] MEDS: BUDESONIDE/FORMOTEROL FUMARATE 160-4.5 MCG/PUFF 10.2 GM INHALER IH SCH (08:15)
[2022-10-15] MEDS: TIOTROPIUM BROMIDE 18 MCG/INH HANDIHALER [5] IH SCH (08:16)
[2022-10-15] MEDS: DEXTROSE 5%-0.45% SODIUM CHL 1,000 ML IV SCH (09:24)
[2022-10-15] MEDS ORDERED: POTASSIUM CHLORIDE 20 MEQ ER TABLET PO ONE (12:15)
[2022-10-15] MEDS ORDERED: HYDR-4069 PO (12:24)
[2022-10-15] MEDS ORDERED: TRAZ-252 PO (12:24)
[2022-10-15 15:06] VITALS: BP 131/69
== END 2022-10-15 17:00 | disposition home or self-care (01) | DRG 389 ==
LOC: EMS 10:01 → AHU 14:51 → 6S 19:17
PROVIDERS: ADMIT Hospitalist; ATTEND Hospitalist
PROC: 0D9670Z Drainage of Stomach with Drainage Device, Via Natural or Artificial Opening (ICD-10-PCS; principal; 2022-10-12)
DX: K56.609 Unspecified intestinal obstruction, unspecified as to partial versus complete obstruction (principal); I50.32 Chronic diastolic (congestive) heart failure; E86.0 Dehydration; N28.9 Disorder of kidney and ureter, unspecified; F32.A Depression, unspecified; H40.9 Unspecified glaucoma; I11.0 Hypertensive heart disease with heart failure; E78.00 Pure hypercholesterolemia, unspecified; Z96.651 Presence of right artificial knee joint; Z20.822 Contact with and (suspected) exposure to COVID-19; Z88.0 Allergy status to penicillin; Z88.6 Allergy status to analgesic agent; Z90.710 Acquired absence of both cervix and uterus; Z91.041 Radiographic dye allergy status; Z98.84 Bariatric surgery status; Z90.49 Acquired absence of other specified parts of digestive tract
CPT/HCPCS: 71045; 74018; 74176; 80053; 81001; 84484; 85025; 85610; 85730; 87086; 87186; 87804; 93005; 99285; C9113; G0378; J1644; J2270; J2405; J3490; Q9967; 36415-L1; 36415-TC

== ENCOUNTER 2023-03-25 23:19 | Inpatient (IN) | payer OTHER ==
[~2023-03-25] VITALS: Ht 175.3 cm; Wt 131.9 kg
[~2023-03-25 23:19] MED LIST changes: +ATOR20TA PO; -ATOR20TA86 PO; -CALC-1003 PO; +CETI10TA58 PO; -CHOL25TA4 PO; +CYCL5TAB PO; -DOCU-132 PO; +DOCU100C33 PO; +ESCI5TAB16 PO; +FURO40TA5 PO; +GABA-771 PO; +HYDR-4069 PO; +LATA2.5D14 OU; +MORP15TA9 PO; -MULT-1203 PO; +OMEP20CA12 PO; +ONDA4TAB96 PO; -PANT20TA PO; +POTA-92 PO; +PREG150C46 PO; +QUET100T34 PO; -QUET50TA PO; +SPIR100T5 PO; -TRAZ-186 PO; +TRAZ-252 PO; +[UNRECOGNIZED DRUG - CODE] PO
[2023-03-26] MEDS ORDERED: ONDANSETRON HCL 4 MG/2 ML VIAL IVP ONE
[2023-03-26] MEDS ORDERED: FentaNYL CITRATE PF 100 MCG/2 ML VIAL IVP ONE
[2023-03-26 00:23] LABS: BASOPHILS % (AUTO) 0.7 % (0.0-2.0); HEMATOCRIT 34.2 % (36-46); HEMOGLOBIN 10.9 g/dL (12.0-16.0); LYMPHOCYTES # (AUTO) 1.7 K/uL (1.0-4.8); LYMPHOCYTES % (AUTO) 17.2 % (22.0-44.0); MEAN CORPUSCULAR HEMOGLOBIN 27.3 pg (26.0-34.0); MEAN CORPUSCULAR HGB CONC 31.8 G/dL (31.0-37.0); MEAN CORPUSCULAR VOLUME 86 fL (80-100); MONOCYTES # (AUTO) 0.6 K/uL (0.1-1.0); MONOCYTES % (AUTO) 6.7 % (2.0-9.0); NEUTROPHILS # (AUTO) 7.2 K/uL (1.8-7.7); NEUTROPHILS % (AUTO) 74.4 % (40.0-70.0); PLATELET COUNT (AUTO) 322 K/uL (150-450); RED BLOOD CELL COUNT(AUTO) 3.99 MIL/uL (4.00-5.20); RED CELL DISTRIBUTION WIDTH 16.5 % (11.5-14.5)
[2023-03-26 00:33] LABS: CREATININE 1.59 mg/dL (0.60-1.30); POTASSIUM 4.6 mmol/L (3.5-5.1)
[2023-03-26 00:41] LABS: ALBUMIN 2.9 g/dL (3.4-5.0); BILIRUBIN,TOTAL 0.4 mg/dL (0.1-1.0); TOTAL PROTEIN, SERUM 8.1 g/dL (6.4-8.2)
[2023-03-26] MEDS ORDERED: MORPHINE SULFATE 10 MG/ML VIAL IVP ONE (02:15)
[2023-03-26] MEDS ORDERED: MORPHINE SULFATE 4 MG/ML SYRINGE IVP PRN (02:45)
[2023-03-26] MEDS ORDERED: 0.9% SODIUM CHLORIDE 10 ML SYRINGE IVP PRN (02:45)
[2023-03-26] MEDS ORDERED: ONDANSETRON HCL 4 MG/2 ML VIAL IVP PRN (02:45)
[2023-03-26] MEDS ORDERED: ACETAMINOPHEN 325 MG TABLET PO PRN ×2 (02:45→07:45)
[2023-03-26 03:04] LABS: APPEARANCE,URINE CLEAR (CLEAR); BILIRUBIN,URINE NEGATIVE (NEGATIVE); GLUCOSE, URINE (UA) NEGATIVE (NEGATIVE); KETONES,URINE NEGATIVE (NEGATIVE); LEUKOCYTE ESTERASE ,URINE MODERATE (NEGATIVE); NITRATE,URINE NEGATIVE (NEGATIVE); OCCULT BLOOD,URINE MODERATE (NEGATIVE); PROTEIN,URINE TRACE mg/dL (NEGATIVE); SPECIFIC GRAVITIY, URINE 1.015 (1.003-1.030); UROBILINOGEN,URINE <=1.0 mg/dL (<=1.0)
[2023-03-26 03:17] LABS: BACTERIA,URINE None Seen /HPF (None Seen); SQUAMOUS EPITHELIAL CELL,UR Few /LPF (None Seen)
[2023-03-26 03:45] VITALS: BP 132/79; PULSE 100; RESP 20; TEMP 97.5
[2023-03-26 07:22] VITALS: BP 135/73; PULSE 68; RESP 20; TEMP 97.6
[2023-03-26] MEDS ORDERED: SODIUM CHLORIDE 0.9% 1,000 ML IV ONE ×2 (07:45)
[2023-03-26] MEDS: HEPARIN SODIUM,PORCINE 5,000 UNITS/ML VIAL SQ SCH ×2 (08:37→16:21)
[2023-03-26] MEDS: DOCUSATE SODIUM 100 MG CAPSULE PO SCH ×2 (08:40→21:00)
[2023-03-26] MEDS: PANTOPRAZOLE SODIUM 40 MG/VIAL IVP SCH (08:43)
[2023-03-26] MEDS ORDERED: SODIUM CHLORIDE 0.9% 500 ML IV ONE (10:30)
[2023-03-26] MEDS: ONDANSETRON HCL 4 MG/2 ML VIAL IVP PRN (10:35)
[2023-03-26] MEDS: METOCLOPRAMIDE HCL 5 MG/ML 2 ML VIAL IVP SCH ×3 (11:28→23:00)
[2023-03-26 15:27] VITALS: BP 154/82; PULSE 104; RESP 20; TEMP 97.5
[2023-03-26 19:49] VITALS: BP 158/85; PULSE 103; RESP 18; TEMP 98.5
[2023-03-27] MEDS: HEPARIN SODIUM,PORCINE 5,000 UNITS/ML VIAL SQ SCH ×4 (01:01→23:00)
[2023-03-27 04:04] VITALS: BP 143/77; PULSE 102; RESP 19; TEMP 98.4
[2023-03-27] MEDS: METOCLOPRAMIDE HCL 5 MG/ML 2 ML VIAL IVP SCH ×4 (05:00→23:00)
[2023-03-27 07:25] LABS: BASOPHILS % (AUTO) 0.3 % (0.0-2.0); EOSINOPHILS % (AUTO) 0 % (1.0-6.0); HEMOGLOBIN 12.7 g/dL (12.0-16.0); LYMPHOCYTES # (AUTO) 1.1 K/uL (1.0-4.8); MEAN CORPUSCULAR HEMOGLOBIN 27.3 pg (26.0-34.0); MEAN CORPUSCULAR HGB CONC 31.8 G/dL (31.0-37.0); MEAN CORPUSCULAR VOLUME 86 fL (80-100); MONOCYTES % (AUTO) 7.1 % (2.0-9.0); NEUTROPHILS # (AUTO) 11.2 K/uL (1.8-7.7); NEUTROPHILS % (AUTO) 84.6 % (40.0-70.0); PLATELET COUNT (AUTO) 341 K/uL (150-450); RED BLOOD CELL COUNT(AUTO) 4.67 MIL/uL (4.00-5.20); RED CELL DISTRIBUTION WIDTH 16.9 % (11.5-14.5)
[2023-03-27 07:26] LABS: MONOCYTES # (AUTO) 0.9 K/uL (0.1-1.0)
[2023-03-27 07:35] LABS: CALCIUM, TOTAL 9.4 mg/dL (8.8-10.5); CREATININE 1.42 mg/dL (0.60-1.30); POTASSIUM 4.2 mmol/L (3.5-5.1)
[2023-03-27] MEDS: DOCUSATE SODIUM 100 MG CAPSULE PO SCH ×3 (08:40→20:30)
[2023-03-27] MEDS: PANTOPRAZOLE SODIUM 40 MG/VIAL IVP SCH (09:00)
[2023-03-27] MEDS ORDERED: RINGERS SOLUTION,LACTATED 1,000 ML IV ONE (10:15)
[2023-03-27] MEDS ORDERED: BISACODYL 10 MG RECTAL RECTAL SUPPOSITORY PR ONE (14:30)
[2023-03-27] MEDS: MORPHINE SULFATE 2 MG/ML SYRINGE IVP PRN ×2 (14:55→19:57)
[2023-03-27] MEDS ORDERED: SODIUM CHLORIDE 0.9% 1,000 ML IV ONE (15:15)
[2023-03-27 16:00] VITALS: BP 155/80; PULSE 106; RESP 18; TEMP 97.3
[2023-03-27 17:47] VITALS: BP 141/81; PULSE 95; RESP 19; TEMP 97.6
[2023-03-27] MEDS: ONDANSETRON HCL 4 MG/2 ML VIAL IVP PRN (18:48)
[2023-03-27 19:31] VITALS: BP 156/79; PULSE 114; RESP 20; TEMP 98.4
[2023-03-27] MEDS: MORPHINE SULFATE 4 MG/ML SYRINGE IVP PRN (23:00)
[2023-03-28] VITALS (7 sets, daily range): BP systolic 151–179; BP diastolic 77–88; PULSE 114–121; RESP 18–20; TEMP 97.5–98; O2SAT 95–100
[2023-03-28] MEDS: MORPHINE SULFATE 4 MG/ML SYRINGE IVP PRN (03:23)
[2023-03-28] MEDS: METOCLOPRAMIDE HCL 5 MG/ML 2 ML VIAL IVP SCH ×4 (05:00→23:09)
[2023-03-28 07:40] LABS: BASOPHILS % (AUTO) 0.5 % (0.0-2.0); EOSINOPHILS % (AUTO) 0.6 % (1.0-6.0); HEMATOCRIT 35.1 % (36-46); HEMOGLOBIN 11.2 g/dL (12.0-16.0); LYMPHOCYTES # (AUTO) 1.5 K/uL (1.0-4.8); LYMPHOCYTES % (AUTO) 14.5 % (22.0-44.0); MEAN CORPUSCULAR HEMOGLOBIN 27.8 pg (26.0-34.0); MEAN CORPUSCULAR HGB CONC 31.9 G/dL (31.0-37.0); MEAN CORPUSCULAR VOLUME 87 fL (80-100); MONOCYTES # (AUTO) 1.1 K/uL (0.1-1.0); MONOCYTES % (AUTO) 10.9 % (2.0-9.0); NEUTROPHILS # (AUTO) 7.7 K/uL (1.8-7.7); NEUTROPHILS % (AUTO) 73.5 % (40.0-70.0); PLATELET COUNT (AUTO) 283 K/uL (150-450); RED BLOOD CELL COUNT(AUTO) 4.03 MIL/uL (4.00-5.20); RED CELL DISTRIBUTION WIDTH 16.7 % (11.5-14.5)
[2023-03-28 08:01] LABS: CALCIUM, TOTAL 9.1 mg/dL (8.8-10.5); CREATININE 1.24 mg/dL (0.60-1.30)
[2023-03-28] MEDS: HEPARIN SODIUM,PORCINE 5,000 UNITS/ML VIAL SQ SCH ×2 (08:37→17:24)
[2023-03-28] MEDS: PANTOPRAZOLE SODIUM 40 MG/VIAL IVP SCH (09:00)
[2023-03-28] MEDS: DOCUSATE SODIUM 100 MG CAPSULE PO SCH ×2 (09:00→21:00)
[2023-03-28] MEDS ORDERED: SODIUM CHLORIDE 0.9% 1,000 ML IV ONE (10:15)
[2023-03-28] MEDS ORDERED: MORPHINE SULFATE 2 MG/ML SYRINGE IVP ONE (10:15)
[2023-03-28] MEDS: IPRATROPIUM BROMIDE 0.5 MG/2.5 ML NEB SOLUTION NEB PRN (11:22)
[2023-03-28] MEDS ORDERED: MORPHINE SULFATE 2 MG/ML SYRINGE IM ONE (12:30)
[2023-03-28] MEDS: MORPHINE SULFATE 2 MG/ML SYRINGE IVP PRN (14:54)
[2023-03-28] MEDS: BUDESONIDE/FORMOTEROL FUMARATE 160-4.5 MCG/PUFF 10.2 GM INHALER IH SCH (20:23)
[2023-03-28] MEDS: LABETALOL HCL 5 MG/ML 20 ML VIAL IVP PRN (20:40)
[2023-03-29] MEDS: HEPARIN SODIUM,PORCINE 5,000 UNITS/ML VIAL SQ SCH ×4 (00:06→23:51)
[2023-03-29 03:14] VITALS: BP 151/78; PULSE 115; RESP 20; TEMP 98.4
[2023-03-29] MEDS: MORPHINE SULFATE 2 MG/ML SYRINGE IVP PRN ×2 (03:15→10:38)
[2023-03-29] MEDS: METOCLOPRAMIDE HCL 5 MG/ML 2 ML VIAL IVP SCH ×4 (05:01→23:19)
[2023-03-29] MEDS: MORPHINE SULFATE 4 MG/ML SYRINGE IVP PRN ×2 (06:20→19:57)
[2023-03-29] MEDS: PANTOPRAZOLE SODIUM 40 MG/VIAL IVP SCH (08:01)
[2023-03-29] MEDS: DOCUSATE SODIUM 100 MG CAPSULE PO SCH ×2 (08:04→19:57)
[2023-03-29] MEDS: BUDESONIDE/FORMOTEROL FUMARATE 160-4.5 MCG/PUFF 10.2 GM INHALER IH SCH ×2 (09:00→19:57)
[2023-03-29 09:26] VITALS: BP 162/79; PULSE 115; RESP 17; TEMP 97.6
[2023-03-29 10:54] LABS: BASOPHILS % (AUTO) 0.1 % (0.0-2.0); EOSINOPHILS % (AUTO) 0.6 % (1.0-6.0); HEMATOCRIT 35.2 % (36-46); LYMPHOCYTES # (AUTO) 1.3 K/uL (1.0-4.8); MEAN CORPUSCULAR HEMOGLOBIN 27.2 pg (26.0-34.0); MEAN CORPUSCULAR HGB CONC 31.2 G/dL (31.0-37.0); MEAN CORPUSCULAR VOLUME 87 fL (80-100); MONOCYTES # (AUTO) 1.2 K/uL (0.1-1.0); MONOCYTES % (AUTO) 11.1 % (2.0-9.0); NEUTROPHILS # (AUTO) 8.2 K/uL (1.8-7.7); NEUTROPHILS % (AUTO) 76.2 % (40.0-70.0); PLATELET COUNT (AUTO) 263 K/uL (150-450); RED BLOOD CELL COUNT(AUTO) 4.04 MIL/uL (4.00-5.20); RED CELL DISTRIBUTION WIDTH 16.7 % (11.5-14.5)
[2023-03-29 11:02] LABS: CALCIUM, TOTAL 8.8 mg/dL (8.8-10.5); CREATININE 1.09 mg/dL (0.60-1.30); POTASSIUM 3.7 mmol/L (3.5-5.1)
[2023-03-29 19:30] VITALS: BP 165/80; PULSE 124; RESP 20; TEMP 97.8
[2023-03-29] MEDS: IPRATROPIUM BROMIDE 0.5 MG/2.5 ML NEB SOLUTION NEB PRN (22:27)
[2023-03-29 22:30] VITALS: PULSE 111; RESP 20; O2SAT 89
[2023-03-29 22:32] VITALS: PULSE 111; RESP 20; O2SAT 89
[2023-03-29 22:45] VITALS: PULSE 112; RESP 20; O2SAT 98
[2023-03-30 04:10] VITALS: BP 163/80; PULSE 112; RESP 18; TEMP 98.6
[2023-03-30] MEDS: METOCLOPRAMIDE HCL 5 MG/ML 2 ML VIAL IVP SCH (05:05)
[2023-03-30] MEDS: LABETALOL HCL 5 MG/ML 20 ML VIAL IVP PRN (06:09)
[2023-03-30 08:00] VITALS: BP 138/74; PULSE 99; RESP 20; TEMP 97.5
[2023-03-30] MEDS: HEPARIN SODIUM,PORCINE 5,000 UNITS/ML VIAL SQ SCH (09:20)
[2023-03-30] MEDS: PANTOPRAZOLE SODIUM 40 MG/VIAL IVP SCH (09:20)
[2023-03-30] MEDS: DOCUSATE SODIUM 100 MG CAPSULE PO SCH (09:21)
[2023-03-30] MEDS: BUDESONIDE/FORMOTEROL FUMARATE 160-4.5 MCG/PUFF 10.2 GM INHALER IH SCH (09:22)
[2023-03-30] MEDS ORDERED: BISA-151 PO (10:24)
[2023-03-30] MEDS ORDERED: DOCU-385 PO (10:24)
[2023-03-30] MEDS ORDERED: POLY17PO47 PO (10:24)
== END 2023-03-30 12:01 | disposition home or self-care (01) | DRG 389 ==
LOC: EMS 23:20 → 6S 03-26 02:00
PROVIDERS: ADMIT Internal Medicine; ATTEND Internal Medicine
PROC: 0D9670Z Drainage of Stomach with Drainage Device, Via Natural or Artificial Opening (ICD-10-PCS; principal; 2023-03-26)
PROC: 05H933Z Insertion of Infusion Device into Right Brachial Vein, Percutaneous Approach (ICD-10-PCS; 2023-03-28)
PROC: B54MZZA Ultrasonography of Right Upper Extremity Veins, Guidance (ICD-10-PCS; 2023-03-28)
DX: K56.51 Intestinal adhesions [bands], with partial obstruction (principal); K43.6 Other and unspecified ventral hernia with obstruction, without gangrene; N17.9 Acute kidney failure, unspecified; Z68.41 Body mass index [BMI] 40.0-44.9, adult; E66.01 Morbid (severe) obesity due to excess calories; G89.4 Chronic pain syndrome; F32.A Depression, unspecified; G62.9 Polyneuropathy, unspecified; I10 Essential (primary) hypertension; Z96.651 Presence of right artificial knee joint; E78.00 Pure hypercholesterolemia, unspecified; J45.909 Unspecified asthma, uncomplicated; E86.0 Dehydration; M10.9 Gout, unspecified; Z88.0 Allergy status to penicillin; Z88.6 Allergy status to analgesic agent; Z90.710 Acquired absence of both cervix and uterus; Z91.041 Radiographic dye allergy status; Z98.84 Bariatric surgery status; Z90.49 Acquired absence of other specified parts of digestive tract; Z88.8 Allergy status to other drugs, medicaments and biological substances; Z91.048 Other nonmedicinal substance allergy status; Z79.899 Other long term (current) drug therapy; Z80.9 Family history of malignant neoplasm, unspecified; Z82.49 Family history of ischemic heart disease and other diseases of the circulatory system
CPT/HCPCS: 36245; 36569; 74018; 74019; 74022; 74176; 76937; 80048; 80053; 81001; 83690; 83880; 84484; 85025; 87086; 87186; 93005; 94640; 99291; C9113; J1644; J2270; J2405; J2765; J3010; J3490; J7030; 36415-L1; 36415-TC

== ENCOUNTER 2025-03-07 17:15 | Inpatient (IN) | payer OTHER ==
[~2025-03-07] VITALS: Ht 170.2 cm; Wt 132.9 kg
[~2025-03-07 17:15] MED LIST changes: -ASPI-1444 PO; -ATOR20TA PO; +ATOR20TA65 PO; +BENZ-227 PO; +BIMA2.5D4 OU; +BISA-151 PO; -BUDE10.2 IH; +BUDE10.32 IH; +CARV3.1231 PO; -CYCL5TAB PO; +DOCU-385 PO; -DOCU100C33 PO; -ESCI5TAB16 PO; -GABA-771 PO; -LATA2.5D14 OU; +NALO25TA4 PO; +ONDA4 PO; -ONDA4TAB96 PO; +POLY510P31 PO; +PRED-554 PO; -PREG150C46 PO; +PREG150C47 PO; -QUET100T34 PO; +QUET200T30 PO; -TIOT185 IH; +VERA120T91 PO; +VORT10TA PO; -[UNRECOGNIZED DRUG - CODE] PO
[2025-03-07] MEDS: ALBUTEROL SULFATE 2.5 MG/0.5 ML NEB SOLUTION NEB ONE (17:42)
[2025-03-07] MEDS: IPRATROPIUM BROMIDE 0.5 MG/2.5 ML NEB SOLUTION NEB ONE (17:43)
[2025-03-07 17:45] VITALS: PULSE 87; RESP 22; O2SAT 97
[2025-03-07 17:46] VITALS: PULSE 87; RESP 22; O2SAT 97
[2025-03-07 18:54] LABS: FRACTIONATED INSPIRED OXYGEN 21.0 % (21-100.0); SOURCE, BLOOD GAS ARTERIAL; TEMPERATURE, FAHRENHEIT, BG 98.1 FAHREN (96.0-98.6)
[2025-03-07 18:56] LABS: ABG BASE EXCESS 6.5 mmol/L (-2.0-3.0); ABG CARBOXYHEMOGLOBIN 0.8 % (0.5-1.5); ABG HCO3 29.0 mmol/L (21.0-28.0); ABG METHEMOGLOBIN 0.8 % (0.0-1.5); ABG OXYGEN CONTENT 14.2 mL/dL (15.0-23.0); ABG OXYGEN SATURATION 95.2 % (94.0-98.0); ABG OXYHEMOGLOBIN 93.7 % (94.0-98.0); ABG PCO2 62 mmHg (32.0-45.0); ABG PH 7.334 (7.350-7.450); ABG TOTAL HEMOGLOBIN 10.7 G/dL (12.0-16.0); ALLEN TEST, BLOOD GAS Positive; PO2, ARTERIAL BG 72.9 mmHg (83.0-108.0); SITE, BLOOD GAS LFT RADIAL
[2025-03-07 18:57] LABS: ABG A-A DIFF O2 2.6 mmHg (10-20.0); O2 DEVICE,BLOOD GAS ROOM AIR (ROOM AIR)
[2025-03-07] MEDS ORDERED: ALBUTEROL SULFATE 2.5 MG/0.5 ML NEB SOLUTION NEB SCH (21:15)
[2025-03-07] MEDS: LEVOFLOXACIN 750 MG/D5% WATER 150 ML IV ONE (21:59)
[2025-03-07 22:13] LABS: PLATELET COUNT (AUTO) 258 K/uL (150-450); RED BLOOD CELL COUNT(AUTO) 3.75 MIL/uL (4.00-5.20); RED CELL DISTRIBUTION WIDTH 17.6 % (11.5-14.5); WHITE BLOOD COUNT (AUTO) 10.4 K/uL (4.5-11.0)
[2025-03-07 22:19] VITALS: PULSE 74; RESP 22; O2SAT 94
[2025-03-07] MEDS: ALBUTEROL SULFATE 2.5 MG/0.5 ML NEB SOLUTION NEB SCH (22:19)
[2025-03-07] MEDS: IPRATROPIUM BROMIDE 0.5 MG/2.5 ML NEB SOLUTION NEB SCH (22:19)
[2025-03-07 22:24] LABS: CALCIUM, TOTAL 9.1 mg/dL (8.8-10.5); CREATININE 1.02 mg/dL (0.60-1.30); GLOMERULAR FILTR. RATE CALC > 60 mL/min (>60); GLUCOSE,RANDOM 105 mg/dL (70-110); SODIUM SERUM 139 mmol/L (136-145); UREA NITROGEN, BLOOD 29 mg/dL (7-18)
[2025-03-07 22:31] LABS: TROPONIN I-HIGH SENSITIVITY 9 ng/L (<51)
[2025-03-07 22:34] VITALS: PULSE 64; RESP 22; O2SAT 97
[2025-03-07] MEDS: CefTRIAXone 1 GM/DEXTROSE 50 ML IV SCH (22:58)
[2025-03-07] MEDS: LORazepam 2 MG/ML VIAL IVP ONE (23:00)
[2025-03-07] MEDS: AZITHROMYCIN 500 MG/NS 250 ML IV SCH (23:21)
[2025-03-08] VITALS (15 sets, daily range): BP systolic 136–153; BP diastolic 73–99; PULSE 73–99; RESP 18–22; TEMP 97.3–98.4; O2SAT 96–100
[2025-03-08] MEDS ORDERED: ALBUTEROL SULFATE 2.5 MG/0.5 ML NEB SOLUTION NEB SCH (02:00)
[2025-03-08] MEDS: HEPARIN SODIUM,PORCINE 5,000 UNITS/ML VIAL SQ SCH (02:39)
[2025-03-08] MEDS: SODIUM ZIRCONIUM CYCLOSILICATE 5 GM POWDER PACKET PO ONE (04:11)
[2025-03-08 06:27] LABS: PLATELET COUNT (AUTO) 257 K/uL (150-450); RED BLOOD CELL COUNT(AUTO) 4.10 MIL/uL (4.00-5.20); RED CELL DISTRIBUTION WIDTH 17.2 % (11.5-14.5); WHITE BLOOD COUNT (AUTO) 9.3 K/uL (4.5-11.0)
[2025-03-08 07:08] LABS: CALCIUM, TOTAL 9.3 mg/dL (8.8-10.5); CREATININE 0.93 mg/dL (0.60-1.30); GLOMERULAR FILTR. RATE CALC > 60 mL/min (>60); GLUCOSE,RANDOM 95 mg/dL (70-110); SODIUM SERUM 141 mmol/L (136-145); UREA NITROGEN, BLOOD 26 mg/dL (7-18)
[2025-03-08] MEDS: SODIUM POLYSTYRENE SULFONATE 15 GM/60 ML SUSPENSION BOTTLE PO ONE (08:38)
[2025-03-08 14:32] LABS: ABG BASE EXCESS 9.1 mmol/L (-2.0-3.0); ABG CARBOXYHEMOGLOBIN 0.9 % (0.5-1.5); ABG HCO3 31.5 mmol/L (21.0-28.0); ABG METHEMOGLOBIN 0.8 % (0.0-1.5); ABG OXYGEN CONTENT 14.9 mL/dL (15.0-23.0); ABG OXYGEN SATURATION 98.7 % (94.0-98.0); ABG OXYHEMOGLOBIN 97.0 % (94.0-98.0); ABG PCO2 57 mmHg (32.0-45.0); ABG PH 7.390 (7.350-7.450); ABG TOTAL HEMOGLOBIN 10.8 G/dL (12.0-16.0); FRACTIONATED INSPIRED OXYGEN 28.0 % (21-100.0); PO2, ARTERIAL BG 105.9 mmHg (83.0-108.0); SOURCE, BLOOD GAS ARTERIAL; TEMPERATURE, FAHRENHEIT, BG 97.3 FAHREN (96.0-98.6)
[2025-03-08 14:33] LABS: ABG A-A DIFF O2 26.5 mmHg (10-20.0); ALLEN TEST, BLOOD GAS Positive; FLOW, BLOOD GAS 2.00 L/min (0.00-15.00); O2 DEVICE,BLOOD GAS CANNULA (ROOM AIR); SITE, BLOOD GAS LFT RADIAL
[2025-03-08] MEDS ORDERED: SODIUM CHLORIDE 0.9% 250 ML IV ONE (21:10)
[2025-03-09] VITALS (17 sets, daily range): BP systolic 141–189; BP diastolic 73–94; PULSE 88–104; RESP 19–26; TEMP 97.5–98.4; O2SAT 87–100
[2025-03-09] MEDS: ACETAMINOPHEN 325 MG TABLET PO PRN (00:02)
[2025-03-09 07:52] LABS: PLATELET COUNT (AUTO) 321 K/uL (150-450); RED BLOOD CELL COUNT(AUTO) 4.12 MIL/uL (4.00-5.20); RED CELL DISTRIBUTION WIDTH 17.3 % (11.5-14.5); WHITE BLOOD COUNT (AUTO) 13.9 K/uL (4.5-11.0)
[2025-03-09 08:05] LABS: CALCIUM, TOTAL 9.1 mg/dL (8.8-10.5); CREATININE 0.96 mg/dL (0.60-1.30); GLOMERULAR FILTR. RATE CALC > 60 mL/min (>60); GLUCOSE,RANDOM 126 mg/dL (70-110); SODIUM SERUM 137 mmol/L (136-145); UREA NITROGEN, BLOOD 24 mg/dL (7-18)
[2025-03-09] MEDS ORDERED: GuaiFENesin/D-METHORPHAN [SUGAR-FREE] 200-20MG/10 ML SYRUP UDCUP PO PRN (11:30)
[2025-03-09] MEDS: FUROSEMIDE 40 MG TABLET PO SCH (12:40)
[2025-03-09] MEDS: BUDESONIDE/FORMOTEROL FUMARATE 160-4.5 MCG/PUFF 10.2 GM INHALER IH SCH (12:41)
[2025-03-09] MEDS: BENZONATATE 100 MG CAPSULE PO SCH (16:00)
[2025-03-09] MEDS: ATORVASTATIN CALCIUM 20 MG TABLET PO SCH (20:59)
[2025-03-09] MEDS: ETHYL ALCOHOL 62% ANTISEPTIC NASAL SANITIZER 0.6 ML AMPUL NASAL SCH (20:59)
[2025-03-09] MEDS ORDERED: SODIUM CHLORIDE 0.9% 250 ML IV ONE (21:21)
[2025-03-09] MEDS: IPRATROPIUM BROMIDE 0.5 MG/2.5 ML NEB SOLUTION NEB PRN (23:08)
[2025-03-09] MEDS: ALBUTEROL SULFATE 2.5 MG/0.5 ML NEB SOLUTION NEB PRN (23:09)
[2025-03-10] VITALS (12 sets, daily range): BP systolic 110–175; BP diastolic 79–85; PULSE 13–119; RESP 17–24; TEMP 97.5–98.2; O2SAT 95–100
[2025-03-10 05:40] LABS: PLATELET COUNT (AUTO) 313 K/uL (150-450); RED BLOOD CELL COUNT(AUTO) 4.09 MIL/uL (4.00-5.20); RED CELL DISTRIBUTION WIDTH 17.5 % (11.5-14.5); WHITE BLOOD COUNT (AUTO) 12.5 K/uL (4.5-11.0)
[2025-03-10 05:55] LABS: CALCIUM, TOTAL 8.8 mg/dL (8.8-10.5); CREATININE 1.23 mg/dL (0.60-1.30); GLOMERULAR FILTR. RATE CALC 51.0 mL/min (>60); GLUCOSE,RANDOM 124.0 mg/dL (70-110); SODIUM SERUM 134.0 mmol/L (136-145); UREA NITROGEN, BLOOD 33.0 mg/dL (7-18)
[2025-03-10] MEDS: VERAPAMIL HCL 120 MG ER TABLET PO SCH (08:32)
[2025-03-10 09:11] LABS: ABG BASE EXCESS 8.6 mmol/L (-2.0-3.0); ABG CARBOXYHEMOGLOBIN 0.8 % (0.5-1.5); ABG HCO3 31.8 mmol/L (21.0-28.0); ABG METHEMOGLOBIN 0.7 % (0.0-1.5); ABG OXYGEN CONTENT 16.3 mL/dL (15.0-23.0); ABG OXYGEN SATURATION 97.7 % (94.0-98.0); ABG OXYHEMOGLOBIN 96.2 % (94.0-98.0); ABG PCO2 40 mmHg (32.0-45.0); ABG PH 7.518 (7.350-7.450); ABG TOTAL HEMOGLOBIN 12.0 G/dL (12.0-16.0); FRACTIONATED INSPIRED OXYGEN 21.0 % (21-100.0); PO2, ARTERIAL BG 84.0 mmHg (83.0-108.0); SOURCE, BLOOD GAS ARTERIAL; TEMPERATURE, FAHRENHEIT, BG 97.5 FAHREN (96.0-98.6)
[2025-03-10 09:15] LABS: ABG A-A DIFF O2 18.6 mmHg (10-20.0); ALLEN TEST, BLOOD GAS Positive; O2 DEVICE,BLOOD GAS ROOM AIR (ROOM AIR); SITE, BLOOD GAS LFT RADIAL
[2025-03-10 09:16] LABS: PATIENT RATE, BG 24.0 min.
[2025-03-10] MEDS: CETIRIZINE HCL 10 MG TABLET PO PRN (09:56)
[2025-03-10] MEDS: MELATONIN 3 MG TABLET PO PRN (22:57)
[2025-03-11] VITALS (11 sets, daily range): BP systolic 136–186; BP diastolic 77–99; PULSE 88–110; RESP 18–24; TEMP 97.7–98.6; O2SAT 93–100
[2025-03-11 06:25] LABS: PLATELET COUNT (AUTO) 291 K/uL (150-450); RED BLOOD CELL COUNT(AUTO) 4.18 MIL/uL (4.00-5.20); RED CELL DISTRIBUTION WIDTH 17.7 % (11.5-14.5); WHITE BLOOD COUNT (AUTO) 9.4 K/uL (4.5-11.0)
[2025-03-11 06:28] LABS: CALCIUM, TOTAL 8.7 mg/dL (8.8-10.5); CREATININE 1.03 mg/dL (0.60-1.30); GLOMERULAR FILTR. RATE CALC > 60 mL/min (>60); GLUCOSE,RANDOM 99 mg/dL (70-110); SODIUM SERUM 130 mmol/L (136-145); UREA NITROGEN, BLOOD 32 mg/dL (7-18)
[2025-03-11] MEDS ORDERED: HYDROCODONE/ACETAMINOPHEN 5-325 MG TABLET PO PRN (09:00)
[2025-03-11] MEDS: OxyCODONE HCL/ACETAMINOPHEN 5-325 MG TABLET PO PRN (09:06)
[2025-03-11] MEDS ORDERED: ALBU2.5V39 NEB (18:53)
[2025-03-11] MEDS ORDERED: GUAI100L96 PO (18:55)
[2025-03-11] MEDS ORDERED: IPRA0.2S49 NEB (18:57)
[2025-03-11] MEDS ORDERED: MELA5TAB PO (18:58)
[2025-03-11] MEDS ORDERED: PERCT PO (19:01)
[2025-03-11] MEDS ORDERED: CARV6.2534 PO (19:02)
[2025-03-11] MEDS ORDERED: CEPH-558 PO (19:19)
[2025-03-11] MEDS ORDERED: AZIT-167 PO (19:20)
[2025-03-11] MEDS ORDERED: PRED-554 PO (19:23)
[2025-03-11] MEDS ORDERED: CEPHALEXIN MONOHYDRATE 500 MG CAPSULE PO SCH (21:00)
[2025-03-15] MEDS ORDERED: CARV3 PO (13:46)
[2025-03-15] MEDS ORDERED: BUDE10.26 IH (13:46)
== END 2025-03-11 20:55 | DRG 177 ==
LOC: EMS 17:15 → EDH 22:56 → 5N 03-08 01:41
PROVIDERS: ADMIT Internal Medicine; ATTEND Internal Medicine
PROC: 5A09357 Assistance with Respiratory Ventilation, Less than 24 Consecutive Hours, Continuous Positive Airway Pressure (ICD-10-PCS; 2025-03-08)
PROC: 5A09357 Assistance with Respiratory Ventilation, Less than 24 Consecutive Hours, Continuous Positive Airway Pressure (ICD-10-PCS; principal; 2025-03-09)
DX: J15.69 Pneumonia due to other Gram-negative bacteria (principal); G92.8 Other toxic encephalopathy; J96.22 Acute and chronic respiratory failure with hypercapnia; J44.1 Chronic obstructive pulmonary disease with (acute) exacerbation; E66.2 Morbid (severe) obesity with alveolar hypoventilation; E87.4 Mixed disorder of acid-base balance; Z68.42 Body mass index [BMI] 45.0-49.9, adult; J44.0 Chronic obstructive pulmonary disease with (acute) lower respiratory infection; I10 Essential (primary) hypertension; E78.00 Pure hypercholesterolemia, unspecified; I95.9 Hypotension, unspecified; D64.9 Anemia, unspecified; M10.9 Gout, unspecified; Z53.20 Procedure and treatment not carried out because of patient's decision for unspecified reasons; Z96.651 Presence of right artificial knee joint; G89.4 Chronic pain syndrome; Z79.899 Other long term (current) drug therapy; Z79.51 Long term (current) use of inhaled steroids; Z98.84 Bariatric surgery status; Z88.0 Allergy status to penicillin; Z90.710 Acquired absence of both cervix and uterus; Z88.6 Allergy status to analgesic agent; Z91.041 Radiographic dye allergy status; Z99.81 Dependence on supplemental oxygen; Z90.49 Acquired absence of other specified parts of digestive tract
CPT/HCPCS: 71045; 71250; 80048; 82805; 83735; 83880; 84145; 84484; 85025; 87040; 87081; 93005; 94640; 94644; 94660; 94760; 96365; 96366; 96367; 96368; 96375; 97163; 97167; 97530; 97535; 99285; G0378; J0360; J0456; J0696; J1644; J1956; J2060; J2919; J7050; 36415-L1; 36415-TC; J7613